=== PATIENT | female | born 1950 | race Caucasian/White ===

== ENCOUNTER → 2016-10-17 | Outpatient (CLI) | payer BC ==
--- NOTE | 2016-10-17 16:40 | BD ---
EXAMINATION TYPE: MG DEXA axial skeleton. DATE OF EXAM: 10/17/2016 11:05 AM COMPARISON: NONE CLINICAL HISTORY: 66-year-old female postmenopausal with HRT Height: 5 FT 3 IN Weight: 173 FRAX RISK QUESTIONS: Alcohol (3 or more units per day): YES Family History (Parent hip fracture): N Glucocorticoids (More than 3mos): N (Ex: prednisone, prednisolone, methylprednisolone, dexamethasone, and hydrocortisone). History of Fracture in Adulthood: N Secondary Osteoporosis: 1. Type 1 Diabetes: NO 2. Hyperthyroidism: NO 3. Menopause before 45: 45 4. Malnutrition: NO 5. 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 Bone mineral density as measured about the Lumbar spine is: ----- L1-L4(G/cm2): 1.445 T Score Values are as follows: ----- L2: 1.0 ----- L3: 2.4 ----- L4: 3.7 ----- L1-L4: 2.2 : BASELINE Bone mineral density about the R hip (g/cm2): 1.049 Bone mineral density about the L hip (g/cm2): 1.016 T Score values are as follows: -----R Neck: 0.1 -----L Neck: -0.2 -----R Intertrochanter: 0.0 -----L Intertrochanter: 0.0 BASELINE IMPRESSION: Normal (Values between +1 and -1 indicate normal bone mass) Rescreen in 5 years NOTE: T-SCORE=SD OF THE YOUNG ADULT MEAN.
--- NOTE | 2016-10-20 09:43 | MM ---
Reason for exam: screening (asymptomatic). Last mammogram was performed 1 year and 2 months ago. History: Patient is postmenopausal. Family history of premenopausal breast cancer in aunt at age 41. Taking estrogen for 13 years 3 months beginning at age 47. Physical Findings: A clinical breast exam by your physician is recommended on an annual basis and results should be correlated with mammographic findings. MG Screening Mammo w CAD Bilateral CC and MLO view(s) were taken. Prior study comparison: August 08, 2015, bilateral MG screening mammo w CAD. June 02, 2014, bilateral MG screening mammo w CAD. March 03, 2013, bilateral digital screening mammo w/CAD. November 19, 2009, bilateral diagnostic digital mammog. There are scattered fibroglandular densities. No significant changes when compared with prior studies. ASSESSMENT: Negative, BI-RAD 1 RECOMMENDATION: Routine screening mammogram of both breasts in 1 year.
== END | disposition home or self-care (01) ==
LOC: RADMAMWWP 10:22
PROVIDERS: ATTEND Family Medicine
DX: Z12.31 Encounter for screening mammogram for malignant neoplasm of breast (principal); Z79.890 Hormone replacement therapy
CPT/HCPCS: 77080; G0202

== ENCOUNTER → 2018-12-29 | Outpatient (CLI) | payer MEDICARE ==
--- NOTE | 2018-12-29 10:47 | NM ---
EXAMINATION TYPE: NM stress cardiolite complete DATE OF EXAM: 12/29/2018 COMPARISON: NONE HISTORY: Ventricular tachycardia TECHNIQUE: After the intravenous administration of 9.97 mCi Tc 99m Sestamibi - Rest images obtained 45 minutes post injection. The patient exercised using a SALVADOR protocol and 1 minute prior to peak exercise was injected with 25.8 mCi Tc 99m Sestamibi - Stress images obtained 10 minutes post injecti on. FINDINGS: Targeted heart rate was achieved during performance of the study. Review of stress and rest SPECT quique ges demonstrates no distinct perfusion abnormality. Gated analysis shows normal wall motion with an estimated left ventricular ejection fraction of 75 %. IMPRESSION: No scintigraphic evidence for reversible ischemia. Consider echocardiographic correlation for elevate d ejection fraction.
--- NOTE | 2018-12-29 10:52 | EST ---
EXERCISE STRESS DATE OF SERVICE: 12/29/2018 AGE: 68 SEX: Female HT: 5'2-3/4" WT: 180 pounds PROTOCOL: Cardiolite Walter STAGE: III DURATION OF EXERCISE: 8 minutes HEART RATE REST: 65 BLOOD PRESSURE REST: 111/75 MAXIMUM HEART RATE ACHIEVED: 143 MAXIMUM BLOOD PRESSURE: 135/89 85% MPHR: 131 100% MPHR: 154 METS: 9.7 INDICATIONS: Ventricular tachycardia. CLINICAL INFORMATION: Baseline rhythm is a sinus mechanism, rate of 65, normal axis and intervals, normal electrocardiogram. Baseline blood pressure 111/75 mmHg. Patient exercised on Walter protocol for 8 minutes reaching peak rate 143 beats per minute which is equal to 92% maximum predicted heart rate. Peak blood pressure 135/89 mmHg. Test was terminated secondary to fatigue. There was no chest pain. Electrocardiograph monitoring revealed occasional PVCs. There was no evidence of diagnostic ischemic ST deviation. Cardiolite was injected at peak exercise. CONCLUSION: 1. Average exercise tolerance with normal electrocardiograph response to exercise. 2. Occasional PVCs. 3. Nuclear images will be reported separately. MMODL / IJN: [id number] /
== END | disposition home or self-care (01) ==
LOC: RADNMMAIN 07:50
PROVIDERS: ATTEND Family Medicine
DX: I47.2 Ventricular tachycardia (principal)
CPT/HCPCS: 93017; 78452; A9500

== ENCOUNTER → 2019-01-26 | Outpatient (CLI) | payer MEDICARE ==
--- NOTE | 2019-01-31 09:58 | MM ---
Reason for exam: screening (asymptomatic). Last mammogram was performed 2 years and 3 months ago. History: Patient is postmenopausal. Family history of premenopausal breast cancer in aunt at age 41. Took estrogen for 13 years 3 months beginning at age 47. Physical Findings: A clinical breast exam by your physician is recommended on an annual basis and results should be correlated with mammographic findings. MG 3D Screening Mammo W/Cad Bilateral CC and MLO view(s) were taken. Prior study comparison: October 17, 2016, bilateral MG screening mammo w CAD. August 08, 2015, bilateral MG screening mammo w CAD. There are scattered fibroglandular densities. There is no discrete abnormality. No significant changes when compared with prior studies. ASSESSMENT: Negative, BI-RAD 1 RECOMMENDATION: Routine screening mammogram of both breasts in 1 year.
== END | disposition home or self-care (01) ==
LOC: RADMAMWWP 14:56
PROVIDERS: ATTEND Family Medicine
DX: Z12.31 Encounter for screening mammogram for malignant neoplasm of breast (principal)
CPT/HCPCS: 77063; 77067

== ENCOUNTER → 2019-03-23 | Outpatient (CLI) | payer MEDICARE ==
[2019-03-23 22:56] LABS: T4, Free (Free Thyroxine) 1.4 ng/dL (0.80-1.80)
== END | disposition home or self-care (01) ==
LOC: LABWHC1 15:06
PROVIDERS: ATTEND Internal Medicine Endocrinology, Diabetes & Metabolism
DX: E04.2 Nontoxic multinodular goiter (principal); E06.3 Autoimmune thyroiditis
CPT/HCPCS: 36415; 84439; 84443; 84481

== ENCOUNTER → 2019-05-05 | Outpatient (CLI) | payer MEDICARE ==
--- NOTE | 2019-05-05 20:01 | CONS ---
CONSULTATION DATE OF SERVICE: 05/05/2019 This patient is a 69-year-old lady who has been evaluated in the sleep center for possible obstructive sleep apnea-hypopnea syndrome. HISTORY OF PRESENT ILLNESS/SLEEP-WAKE EVALUATION: Patient usually sleeps from around 10:30 p.m. until 7:30 a.m. No problems with falling asleep, although she reads in the bedroom. She usually sleeps on the side position with her , who complains about loudness of her snoring. She wakes up from sleep 2 times with nocturia. She has episodes of restless legs, sweating, palpitations and grinding teeth. In the morning she wakes up tired, has difficulty with paying attention and concentration. Delancey Sleepiness Scale is 6. She may take one nap a day. She drinks up to 4 caffeinated beverages during the day. No history of hypnagogic hallucinations, sleep paralysis or cataplexy. PAST MEDICAL HISTORY: Past medical history is positive for: 1. Hypertension. 2. Prediabetes. 3. Episodes of palpitations. 4. Increasing ventricular on echocardiogram, according to patient. 5. Allergies. 6. Questionable history of asthma. 7. Multinodular goiter. PAST SURGICAL HISTORY: 1. Partial hysterectomy. 2. Total left knee replacement in 2012. MEDICATIONS: 1. Metformin. 2. Losartan. 3. Montelukast. 4. Another "spray.". 5. Nalini. 6. Metoprolol. 7. Iodine. 8. Vitamin supplements. SOCIAL HISTORY: Positive for a very short period of smoking when patient was in college. Alcohol consumption about 3 times per week; wine with dinner. FAMILY HISTORY: Hypertension, heart problems, hyperlipidemia, stroke, arthritis, asthma, sinus problems, cancer, headaches, snoring, sleep apnea, emphysema, acid reflux, thyroid problems, restless legs. REVIEW OF SYSTEMS: Awakenings from sleep, episodes of palpitations. PHYSICAL EXAMINATION: GENERAL: A pleasant lady without distress. VITAL SIGNS: BP 122/82, HR 64, RR 16, height 5 feet 2-1/4 inches, weight 180.4 pounds. Body mass index 32.7. Temperature 98.2, oxygen saturation at room air 96%. HEENT: PERRLA, EOMI. Evaluation of oropharynx showed tongue protrudes midline. Extremely low position of soft palate. Mallampati IV. Slight restriction of nasal breathing. NECK: Supple. No JVD. Thyroid is not palpable. Neck measures 14-3/4 inches in circumference. LUNGS: Clear to percussion and to auscultation. Good air exchange. No wheezing or rhonchi. HEART: S1, S2 regular. No murmurs, gallops or rubs. ABDOMEN: Slightly obese. EXTREMITIES: No clubbing or cyanosis. SUMMER ASSOCIATE: Awake, alert, and oriented X3. Cranial nerves 2 to 7 intact. There is no fasciculation or atrophy. noted. No focal deficits observed. IMPRESSION: 1. Snoring, awakenings from sleep with nocturia and palpitations, extremely low position of soft palate, Mallampati IV; possible obstructive sleep apnea-hypopnea syndrome. 2. Hypertension. 3. History of ventricular hypertrophy by results of echocardiogram, according to patient. 4. Prediabetes. 5. Mild obesity. 6. Allergies. 7. Multinodular goiter. 8. Status post total left knee replacement. 9. Status post partial hysterectomy. 10.Questionable history of asthma in the past. PLAN: 1. Polysomnography for evaluation of patient's breathing during sleep. 2. CPAP/BiPAP titration if sleep study confirms obstructive sleep apnea-hypopnea syndrome. 3. Preferable position during sleep on the side. 4. No driving if patient feels any sleepiness. 5. I will see patient for follow up visit to explain results of testing and following plan. Thank you very much for referring this patient for consultation. Sincerely, Juan Jose Christine MD, PhD, FAASM Diplomat of [place] [employer] [place] [employer] Velvet Weaver of [facility] [place] MMODL / STEFANYN: [id number] /
== END | disposition home or self-care (01) ==
LOC: SLEEP 15:20
PROVIDERS: ATTEND Internal Medicine
DX: R06.83 Snoring (principal); I10 Essential (primary) hypertension; E66.9 Obesity, unspecified; E04.2 Nontoxic multinodular goiter; G47.63 Sleep related bruxism; R73.03 Prediabetes; R00.2 Palpitations; G25.81 Restless legs syndrome; R61 Generalized hyperhidrosis; Z68.32 Body mass index [BMI] 32.0-32.9, adult; R35.1 Nocturia; Z87.891 Personal history of nicotine dependence; Z90.710 Acquired absence of both cervix and uterus; Z96.651 Presence of right artificial knee joint; Z79.84 Long term (current) use of oral hypoglycemic drugs; Z79.899 Other long term (current) drug therapy; T78.40XA Allergy, unspecified, initial encounter
CPT/HCPCS: 99211

== ENCOUNTER → 2020-02-17 | Outpatient (CLI) | payer MEDICARE ==
[2020-02-17 15:15] LABS: T4, Free (Free Thyroxine) 1.3 ng/dL (0.80-1.80)
== END | disposition home or self-care (01) ==
LOC: LABWHC1 07:57
PROVIDERS: ATTEND Internal Medicine Endocrinology, Diabetes & Metabolism
DX: E04.2 Nontoxic multinodular goiter (principal); E07.9 Disorder of thyroid, unspecified; R73.02 Impaired glucose tolerance (oral)
CPT/HCPCS: 36415; 84439; 84443; 84481

== ENCOUNTER → 2020-06-19 | Outpatient (CLI) | payer MEDICARE ==
[2020-06-19 10:27] LABS: Basophils # (A) 0.1 k/uL (0-0.2); Basophils % (A) 1 %; Eosinophils # (A) 0.1 k/uL (0-0.7); Eosinophils % (A) 3 %; HCT 37.7 % (34.0-46.0); Lymphocytes # (A) 1.5 k/uL (1.0-4.8); Lymphocytes % (A) 32 %; MCHC 34.4 g/dL (31.0-37.0); Mean Platelet Volume 7.7; Monocytes # (A) 0.3 k/uL (0-1.0); Monocytes % (A) 6 %; Neutrophils # (A) 2.5 k/uL (1.3-7.7); Neutrophils % (A) 55 %; Platelet Count 211 k/uL (150-450); RBC 4.33 m/uL (3.80-5.40); RDW 12.8 % (11.5-15.5); WBC 4.6 k/uL (3.8-10.6)
[2020-06-19 10:39] LABS: INR 0.9 (<1.2); Partial Thromboplastin Time 25.7 sec (22.0-30.0); Prothrombin Time 9.8 sec (9.0-12.0)
[2020-06-19 10:41] LABS: ALT 17 U/L (4-34); AST 24 U/L (14-36); African American GFR (CKD) >90 (>60 ml/min/1.73 sqM); Albumin 4.3 g/dL (3.5-5.0); Alkaline Phosphatase 39 U/L (38-126); Anion Gap 7 mmol/L; Appearance,Urine Clear (Clear); Bacteria,Urine Rare /hpf; Bilirubin,Urine Negative (Negative); Blood Urea Nitrogen 15 mg/dL (7-17); Blood,Urine Small (Negative); Calcium 9.4 mg/dL (8.4-10.2); Carbon Dioxide 27 mmol/L (22-30); Chloride 100 mmol/L (98-107); Color,Urine Yellow; Glucose 118 mg/dL (74-99); Glucose,Urine (UA) Negative (Negative); Hyaline Casts,Urine 1 /lpf (0-2); Ketones,Urine Negative (Negative); Leukocyte Esterase,Urine Negative (Negative); Mucus,Urine Rare /hpf; Nitrite,Urine Negative (Negative); Non-African American GFR(CKD) 85 (>60 ml/min/1.73 sqM); Potassium 4.4 mmol/L (3.5-5.1); Protein,Urine Negative (Negative); RBC,Urine 5 /hpf (0-5); Sodium 134 mmol/L (137-145); Specific Gravity,Urine 1.013 (1.001-1.035); Total Bilirubin 0.7 mg/dL (0.2-1.3); Urobilinogen,Urine <2.0 mg/dL (<2.0); WBC,Urine <1 /hpf (0-5)
== END | disposition home or self-care (01) ==
LOC: LABPAT 09:09
PROVIDERS: ATTEND Orthopaedic Surgery Sports Medicine
DX: Z01.818 Encounter for other preprocedural examination (principal); Z01.812 Encounter for preprocedural laboratory examination
CPT/HCPCS: 80053; 81001; 85025; 85610; 85730; 87070

== ENCOUNTER → 2020-08-15 | Outpatient (CLI) | payer MEDICARE ==
--- NOTE | 2020-08-20 09:42 | MM ---
Reason for exam: screening (asymptomatic). Last mammogram was performed 1 year and 7 months ago. History: Patient is postmenopausal. Family history of premenopausal breast cancer in aunt at age 41. Took estrogen for 13 years 3 months beginning at age 47. Physical Findings: A clinical breast exam by your physician is recommended on an annual basis and results should be correlated with mammographic findings. MG 3D Screening Mammo W/Cad Bilateral CC and MLO view(s) were taken. Prior study comparison: January 26, 2019, bilateral MG 3d screening mammo w/cad. October 17, 2016, bilateral MG screening mammo w CAD. The breast tissue is heterogeneously dense. This may lower the sensitivity of mammography. There are benign appearing round calcifications bilaterally. There is no discrete abnormality. ASSESSMENT: Benign, BI-RAD 2 RECOMMENDATION: Routine screening mammogram of both breasts in 1 year. Manage on a clinical basis with regard to left pain.
== END | disposition home or self-care (01) ==
LOC: RADMAMWWP 14:01
PROVIDERS: ATTEND Family Medicine
DX: Z12.31 Encounter for screening mammogram for malignant neoplasm of breast (principal)
CPT/HCPCS: 77063; 77067

== ENCOUNTER → 2020-08-21 | Outpatient (CLI) | payer MEDICARE ==
[2020-08-21 22:13] LABS: Chol/HDL Ratio 3.26; LDL Cholesterol,Calculated 90.6 mg/dL (0.0-131.0); VLDL Calculation 22.4 mg/dL (5.00-40.00)
[2020-08-21 22:21] LABS: T4, Free (Free Thyroxine) 1.4 ng/dL (0.80-1.80)
[2020-08-21 23:06] LABS: Hemoglobin A1C 5.7 % (4.0-6.0)
== END | disposition home or self-care (01) ==
LOC: LABWHC1 10:17
PROVIDERS: ATTEND Physician Assistant Medical
DX: R73.01 Impaired fasting glucose (principal); E78.5 Hyperlipidemia, unspecified; E03.9 Hypothyroidism, unspecified
CPT/HCPCS: 36415; 80061; 83036; 84439; 84443; 84481

== ENCOUNTER → 2020-08-21 | Outpatient (CLI) | payer MEDICARE ==
[2020-08-21 11:35] LABS: Appearance,Urine Clear (Clear); Bilirubin,Urine Negative (Negative); Blood,Urine Small (Negative); Color,Urine Light Yellow; Glucose,Urine (UA) Negative (Negative); Ketones,Urine Negative (Negative); Leukocyte Esterase,Urine Negative (Negative); Nitrite,Urine Negative (Negative); Protein,Urine Negative (Negative); RBC,Urine 2 /hpf (0-5); Specific Gravity,Urine 1.011 (1.001-1.035); Squamous Epithelial Cell,Urine <1 /hpf (0-4); Urobilinogen,Urine <2.0 mg/dL (<2.0); WBC,Urine <1 /hpf (0-5)
[2020-08-21 11:49] LABS: ALT 16 U/L (4-34); AST 24 U/L (14-36); African American GFR (CKD) >90 (>60 ml/min/1.73 sqM); Albumin 4.6 g/dL (3.5-5.0); Alkaline Phosphatase 46 U/L (38-126); Anion Gap 7 mmol/L; Blood Urea Nitrogen 12 mg/dL (7-17); Calcium 9.7 mg/dL (8.4-10.2); Carbon Dioxide 28 mmol/L (22-30); Chloride 99 mmol/L (98-107); Glucose 104 mg/dL (74-99); Non-African American GFR(CKD) >90 (>60 ml/min/1.73 sqM); Potassium 4.4 mmol/L (3.5-5.1); Sodium 134 mmol/L (137-145); Total Bilirubin 0.6 mg/dL (0.2-1.3); Total Protein 7.3 g/dL (6.3-8.2)
[2020-08-21 11:54] LABS: INR 0.9 (<1.2); Partial Thromboplastin Time 25.4 sec (22.0-30.0)
[2020-08-21 11:56] LABS: HCT 36.7 % (34.0-46.0); HGB 12.5 gm/dL (11.4-16.0); MCHC 34.2 g/dL (31.0-37.0); MCV 87.5 fL (80.0-100.0); Mean Platelet Volume 8.2; Platelet Count 216 k/uL (150-450); RBC 4.19 m/uL (3.80-5.40); RDW 12.9 % (11.5-15.5); WBC 4.8 k/uL (3.8-10.6)
== END | disposition home or self-care (01) ==
LOC: LABPAT 10:22
PROVIDERS: ATTEND Orthopaedic Surgery Sports Medicine
DX: Z01.818 Encounter for other preprocedural examination (principal)
CPT/HCPCS: 80053; 81001; 85027; 85610; 85730

== ENCOUNTER 2020-08-30 05:34 | Day surgery (SDC) | payer MEDICARE ==
[2020-08-27 17:35] VITALS: BMI 31.8
[~2020-08-30 05:34] MED LIST: ACETAMINOPHEN TAB 500 MG TAB PO PRN; GABAPENTIN 300 MG CAP PO PRN; MELOXICAM 7.5 MG TAB PO PRN; ONDANSETRON 4 MG/2 ML VIAL IVP PRN; ROPIVACAINE 246.25 MG, EPINEPHrine 0.5 MG, KETOROLAC 30 MG, cloNIDine HCL/PF 80 MCG, WA... MISCELLANE PRN; TRANEXAMIC ACID 1,000 MG in SODIUM CHLORIDE 0.9% 100 ML IVPB PRN
[2020-08-30] MEDS ORDERED: ONDANSETRON 4 MG/2 ML VIAL IVP ONE (05:37)
[2020-08-30] MEDS ORDERED: MIDAZOLAM 2 MG/2 ML VIAL IV PRN (05:37)
[2020-08-30] MEDS ORDERED: DEXAMETHASONE SOD PHOSPHATE 4 MG/ML 1 ML VIAL IV ONE (05:37)
[2020-08-30] MEDS: LACTATED RINGERS 1,000 ML IV SCH ×3 (06:03→17:53)
[2020-08-30] MEDS ORDERED: LIDOCAINE 1% (10MG/ML) FOR IV START INTRADERMA ONE (06:05)
[2020-08-30 06:14] LABS: Glucose,Whole Blood 116 mg/dL (75-99)
[2020-08-30] MEDS ORDERED: TRANEXAMIC ACID 1,000 MG/10 ML VIAL ONE (06:59)
[2020-08-30] MEDS ORDERED: diphenhydrAMINE 50 MG/ML 1 ML VIAL ONE (06:59)
[2020-08-30] MEDS ORDERED: PHENYLEPHRINE-0.9% NACL SYG 1,000 MCG/10 ML SYRINGE ONE (06:59)
[2020-08-30] MEDS ORDERED: SODIUM CHLORIDE 0.9% 100 ML BAG ONE (06:59)
[2020-08-30] MEDS ORDERED: PROPOFOL 10 MG/ML 20 ML VIAL IV ONE (06:59)
[2020-08-30] MEDS ORDERED: MIDAZOLAM 2 MG/2 ML VIAL ONE (06:59)
[2020-08-30] MEDS ORDERED: fentaNYL (PF) 50 MCG/ML 2 ML AMP ONE (06:59)
[2020-08-30] MEDS ORDERED: ROPIVACAINE/EPI/CLONIDINE/KET 50 ML SYRINGE MISCELLANE PRN (07:00)
[2020-08-30] MEDS ORDERED: LACTATED RINGERS 1,000 ML IV ONE (08:51)
[2020-08-30] MEDS ORDERED: ROPIVACAINE 0.2%-NS ON-Q PUMP 1,090 MG, EMPTY PAIN BALL 1 EACH MISCELLANE PRN (09:01)
--- NOTE | 2020-08-30 09:01 | P.ANPRN ---
Procedure Note - Anesthesia - Nerve Block Performed Right Adductor Canal Infusion Time Out Performed: Yes Date of Procedure: 08/30/20 Procedure Start Time: 06:41 Procedure Stop Time: 06:53 Location of Patient: PreOp Indication: Acute Post-Operative Pain, Requested by Surgeon Sedation Type: Sedate with meaningful contact maintained Preparation: Sterile Prep Position: Supine Catheter: Indwelling Needle Types: Pajunk Needle Gauge: 21 Ultrasound used to visualize needle placement: Yes Ultrasound used to observe medication spread: Yes Blood Aspirated: No Pain Paresthesia on Injection Noted: No Resistance on Injection: Normal Image Stored and Saved: Yes Events: Uneventful and Well Tolerated (ropi .5% 20cc plus dexamethasone 4mg)
[2020-08-30] MEDS ORDERED: HYDROcodone/APAP 5-325MG 1 EACH TAB PO PRN (09:07)
[2020-08-30] MEDS ORDERED: MAGNESIUM HYDROXIDE 2,400 MG/10 ML CUP PO PRN (09:07)
[2020-08-30] MEDS ORDERED: traMADol 50 MG TAB PO PRN (09:07)
[2020-08-30] MEDS ORDERED: NA PHOS,M-B/NA PHOS,DI-BA 133 ML ENEMA RECTAL PRN (09:07)
[2020-08-30] MEDS ORDERED: TEMAZEPAM 15 MG CAP PO PRN (09:07)
[2020-08-30] MEDS ORDERED: ONDANSETRON 4 MG/2 ML VIAL IVP PRN (09:07)
[2020-08-30] MEDS ORDERED: NALOXONE 0.4 MG/ML 1 ML VIAL IV PRN (09:07)
[2020-08-30] MEDS ORDERED: HYDROmorphone 0.2 MG/1 ML SYRINGE IVP PRN (09:07)
[2020-08-30] MEDS ORDERED: bisacodyL 10 MG SUPP RECTAL PRN (09:07)
[2020-08-30] MEDS ORDERED: ACETAMINOPHEN TAB 325 MG TAB PO PRN (09:07)
[2020-08-30] MEDS ORDERED: diazePAM 5 MG TAB PO PRN (09:07)
[2020-08-30] MEDS ORDERED: HYDROmorphone 0.5 MG/0.5 ML SYRINGE IVP PRN (09:07)
[2020-08-30 09:11] LABS: Glucose,Whole Blood 152 mg/dL (75-99)
--- NOTE | 2020-08-30 09:33 | OP ---
OPERATIVE REPORT DATE OF PROCEDURE: 08/30/2020 SURGEON: Raz Lacey MD. CUT OUT MACHINE OPERATOR: GREG Fitzgerald. PREOPERATIVE DIAGNOSIS: Right knee osteoarthrosis. POSTOPERATIVE DIAGNOSIS: Right knee osteoarthrosis. OPERATION: Right total knee arthroplasty. ANESTHESIA: Spinal sedation. ESTIMATED BLOOD LOSS: 100 mL. TOURNIQUET TIME: 49 minutes at 250 mmHg. COMPLICATIONS: None apparent. DRAINS: None. DISPOSITION: Postanesthesia care unit. INDICATIONS: Jeannie is a 70-year-old female with longstanding history of right knee pain. History and physical examination are consistent with advanced right knee osteoarthrosis. She has been through significant nonoperative management up this point. Further treatment options were discussed. She has decided to go forward with the right total knee arthroplasty. The risks of procedure were discussed with her in detail. These risks include, but are not limited to risk of infection, nerve damage, bleeding, pain, and a small risk of deep vein thrombosis which could lead to fatal pulmonary embolism. There is also risk of loosening of the implant which could require revision operation. The patient understands these risks. All of her questions were answered to her satisfaction. Appropriate informed consent was obtained. DESCRIPTION OF THE PROCEDURE: The patient was identified in the preoperative holding area. Surgical site was marked by both the patient and myself. She was given 2 grams of Ancef IV for prophylactic purposes. She was then transferred to the operative suite. She was placed supine on the operating room table. Spinal anesthetic was then administered and dosed per the anesthesia without apparent complication. Examination under anesthesia was then performed. The patient was 2-3 degrees shy of full extension. She had 100 degrees of flexion. The medial collateral ligament, lateral collateral ligament and posterior cruciate ligaments were stable. Tourniquet was then placed high on the right upper thigh well-padded in preparation for surgery. The patient's right lower extremity was then prepped and draped in usual sterile fashion. Standard surgical pause was undertaken to ensure that we were operating the correct site and that appropriate preoperative antibiotics had been given. All staff in the room were in agreement and we proceeded. The outlines of the patella were marked with surgical pen. A planned 12 cm vertical incision was centered over the patella and was marked with surgical pen. The leg was then exsanguinated with an Esmarch dressing. The knee was then flexed and tourniquet was inflated to 250 mmHg. The total tourniquet time for the procedure was 49 minutes. Incision was then made with a 10 blade scalpel. Dissection was carried down sharply overlying fascia. Great care was taken to minimize the skin flaps. The knee was then exposed using a standard medial parapatellar approach. A small cuff of quadriceps tendon was then left for suturing. She was in a bit of varus preoperatively. A standard medial release was then made. Superficial medial collateral ligament was dissected off the bone around to the posterior aspect of the proximal tibia. The medial meniscus was then excised as well. The lateral meniscus was also released anteriorly. The leg was then externally rotated. The patella was everted. The knee was flexed. Retractors were then placed to protect the collateral ligaments. I then proceeded to remove the infrapatellar fat pad. This was excised sharply tangentially with the fibers of the patellar tendon. I then proceeded to remove the peripheral osteophytes. This was done with a rongeur. I then proceeded with the distal femoral resection. She did have near full extension. A planned 9 mm resection was then done. The femoral canal was then entered in the midline of the femur approximately 10 mm anterior to the origin of the posterior cruciate ligament. The faheem was then advanced on the center of the femur and placed intramedullary. Based on the preoperative radiographs, the angle between the anatomic and mechanical axis of the femur was approximately 4 to 5 degrees. The valgus angle of the distal femoral cutting guide was then set at 4 degrees for the right knee. Distal femoral cutting guide was then advanced over the intramedullary faheem. This was seated firmly against the femur. I then as mentioned planned to take 9 mm off the distal femur. The cutting block was then secured onto the femur with pins. The jig was then removed. The distal femoral cut was made through the slot of the block. The pins were then removed. The distal femoral cutting block was removed. The accuracy of the distal femoral cuts was checked with 2 flat bars. I then proceeded with femoral sizing. Posterior referencing sizing guide was held firmly against the resected distal surface of the femur. The posterior condyles were resting on the posterior plane of the guide. The sizing stylus was then placed onto the anterior femur. The size was measured as a size 7. I then assessed for femoral rotation. Plan was for 3 degrees of external rotation. Three degrees of external rotation was placed onto the jig. These holes were then marked. I then confirmed the rotation by 3 separate methods. This was done using the epicondylar axis as well as Whitesides line and posterior referencing. It was deemed that the external rotation was proper. I then went forward and placed in the femoral cutting block. This was placed over the previously placed pin holes. The Rodrick wing was then placed on the anterior slots to ensure that we would not notch the anterior femur with the anterior femoral cut. I then proceeded with the anterior femoral cut. This was flushed with the anterior cortex of the femur. The posterior cuts were then made followed by the anterior chamfer cut, then the posterior chamfer cut. The cutting block was then removed. Throughout the resection, the collateral ligaments were protected with retractors. I then placed a trial size 7 femur. It was slightly wide mediolateral but the narrow fit very nicely and it fit flush with the distal end of the femur. The drill holes were then made. I then proceeded with the tibial cut. I planned for cruciate-retaining knee. The guide was placed and set for varus, valgus and for slope. The height set for approximate 2 mm resection from the medial tibial plateau which was the lower side. I was happy with the alignment and amount of resection. The cutting block was then pinned to the proximal tibia. The alignment faheem was removed. The proximal tibia was resected with reciprocating saw. Again this was done with retractors protecting the collateral ligaments as well as the posterior cruciate ligament. I then proceeded to evaluate the flexion and extension gaps. A 10 mm block was then placed. The flexion and extension gaps were equal. I then proceeded with resection of posterior osteophytes, very minimal posterior osteophytes. This was done using a curved osteotome. This resected the posterior osteophytes and posterior capsule stripping was done off the posterior aspect of the femur at this time. The osteophytes were then removed. I then proceeded with resection of the patella. The thickness of the patella was measured using the caliper. The thickness was 22 mm. The thickness of the anticipated patellar dome was taken into account. Resection was then performed and confirmed to be equal in 4 quadrants using a caliper. Approximately 14 mm of bone remained after resection. A 29 x 8 standard patellar trial was then placed. The holes were drilled and the trial was then placed. I then proceeded with sizing tibial plate. A size D tibial plate fit very nicely. I then placed the trial femur, the tibial tray and patellar button. A 10 mm trial tibial insert was also placed. The components fit very nicely. She had full extension and flexion. The extension and flexion gaps were equal and stable to both varus and valgus stress. The patella tracked appropriately. The tibial tray rotation was then marked with a Bovie. This was externally rotated properly. I then proceeded with tibial preparation. First, we drilled the femoral holes and removed femoral component. The tibial tray was then set for proper external rotation as well as mediolateral placement onto the tibia. It was then pinned into place. Then proceed with punching the keel. I then decided proceed with cementing of all of our components. The knee was thoroughly irrigated with sterile saline solution via pulse lavage. The lateral geniculate artery was identified and cauterized. All blood was removed from the bone of the tibia, femur and patella with pulse lavage. I then proceeded with cementing. Two packs of antibiotic bone cement were prepared on the back table by the surgical appliances salesperson. I then proceed with cementing the tibia first. The cement was impacted in the keel as well as deeply seated into the bone. A second coat of cement was then placed. The tibia was then impacted in place. Excess cement was removed. Excess cement was removed with Britt's and Jokers. I then proceed to cementing the femoral component. The femoral component was also cemented using standard technique. Excess cement was removed. A 10 mm trial insert was then placed into the knee. It was brought into full extension with a constant axial load placed until the cement had hardened. The patellar component was then cemented. This held firmly with a compression device until the cement had dried. When the cement had dried, the knee was taken out of extension. All excess cement was removed from around the prosthesis. I then trialed the knee with a 10 mm insert. Flexion extension gaps were appropriate. The knee was stable. It came in full extension. I decided to go forward with a 10 mm medial congruent cross-linked cruciate- retaining tibial insert. The polyethylene was then placed on the tibial tray and locked into place. The knee was then reduced. The knee was again further irrigated with sterile saline solution with antibiotic added. The tourniquet was then deflated. The total tourniquet time for the procedure was 49 minutes at 250 mmHg. Final components were Jesse Persona size 7 narrow cruciate-retaining femoral component, size D tibial tray, a 10 mm medial congruent cruciate-retaining polyethylene insert and a 29 x 8 patella. I then proceeded with closure. Again, the knee was thoroughly irrigated. The quadriceps tendon and the medial retinaculum were reapproximated with #2 Ethibond suture. The extensor mechanism was then closed with a running #2 Quill suture. Subcutaneous tissues were then closed with 2-0 Vicryl interrupted suture. The skin was closed with a running 3-0 Quill suture. Dermabond was applied to the incision. Sterile compressive dressing was then applied. All sponge and needle counts were deemed correct prior to closure. The patient tolerated procedure without apparent complication. She was transferred to recovery room in stable condition. MMODL / IJN: [id number] /
--- NOTE | 2020-08-30 09:54 | XR ---
EXAMINATION TYPE: XR knee limited RT DATE OF EXAM: 08/30/2020 COMPARISON: NONE TECHNIQUE: Two views submitted HISTORY: Post op FINDINGS: There is a prosthetic knee in near anatomic alignment. There is soft tissue edema and emphysema. IMPRESSION: 1. Postoperative change. Appears in near-anatomic alignment
[2020-08-30] MEDS: HYDROmorphone 0.5 MG/0.5 ML SYRINGE IVP PRN ×2 (10:55→12:32)
[2020-08-30] MEDS: HYDROcodone/APAP 10-325MG 1 EACH TAB PO PRN ×2 (18:10→23:24)
[2020-08-30 21:17] LABS: Glucose,Whole Blood 125 mg/dL (75-99)
[2020-08-30] MEDS: SENNOSIDES-DOCUSATE SODIUM 1 EACH TAB PO SCH (21:42)
[2020-08-30] MEDS: ASPIRIN 81 MG PO SCH (21:43)
[2020-08-31] MEDS: HYDROcodone/APAP 10-325MG 1 EACH TAB PO PRN (05:53)
[2020-08-31 06:48] LABS: Glucose,Whole Blood 123 mg/dL (75-99)
--- NOTE | 2020-08-31 07:20 | P.PN ---
Progress Note - Text 08/31/20 702am 70 year old female s/p tkr by Dr Lacey. Pt has an on q pump for post op pain control, she has a vas of 4 this morning.she is complaining of pain in the back of the knee and some gluteal nerve pain.She plans to ask the service for gabapentin .
[2020-08-31] MEDS: ASPIRIN 81 MG PO SCH ×2 (08:22→20:04)
[2020-08-31] MEDS: HYDROmorphone 0.5 MG/0.5 ML SYRINGE IVP PRN ×4 (09:21→22:51)
[2020-08-31 09:39] LABS: Basophils # (A) 0.03 X 10*3/uL (0.00-0.10); Basophils % (A) 0.3 %; Eosinophils # (A) 0.01 X 10*3/uL (0.04-0.35); Eosinophils % (A) 0.1 %; HCT 29.5 % (37.2-46.3); HGB 9.6 g/dL (12.0-15.0); Lymphocytes # (A) 1.29 X 10*3/uL (0.90-5.00); Lymphocytes % (A) 14.5 %; MCH 29.3 pg (27.0-32.0); MCHC 32.5 g/dL (32.0-37.0); MCV 89.9 fL (80.0-97.0); Mean Platelet Volume 11.1 fL (9.5-12.2); Monocytes # (A) 0.75 X 10*3/uL (0.20-1.00); Monocytes % (A) 8.4 %; Neutrophils # (A) 6.81 X 10*3/uL (1.80-7.70); Neutrophils % (A) 76.4 %; Platelet Count 190 X 10*3/uL (140-440); RBC 3.28 X 10*6/uL (4.10-5.20); RDW 12.7 % (11.5-14.5); WBC 8.92 X 10*3/uL (4.50-10.00)
[2020-08-31] MEDS: metFORMIN 500 MG TAB PO SCH ×2 (10:27→20:03)
[2020-08-31] MEDS: METOPROLOL SUCCINATE (ER) 50 MG TAB.ER.24H PO SCH (10:28)
[2020-08-31] MEDS: ATORVASTATIN 20 MG TAB PO SCH ×2 (10:28→10:51)
[2020-08-31] MEDS: PANTOPRAZOLE 40 MG TABLET PO SCH (10:34)
[2020-08-31 11:40] LABS: Glucose,Whole Blood 142 mg/dL (75-99)
[2020-08-31] MEDS: INSULIN ASPART (NovoLOG) 100 UNIT/ML VIAL SQ SCH ×3 (12:20→20:05)
[2020-08-31] MEDS: MULTIVITAMINS, THERA 1 EACH TAB PO SCH (12:21)
--- NOTE | 2020-08-31 12:46 | P.PN ---
Subjective Progress Note Date: 08/31/20 Principal diagnosis: Right TKA Patient is seen at bedside this morning. She is postop day #1 from right total knee arthroplasty. She has pain at the surgical site as expected but denies any new complaints. She denies numbness, tingling or calf pain. Review of systems is negative for fever, chills, chest pain, shortness of breath or other Objective - Vital Signs Vital signs: Vital Signs Temp 99.5 F 08/31/20 07:24 Pulse 70 08/31/20 08:05 Resp 20 08/31/20 08:05 BP 115/70 08/31/20 07:24 Pulse Ox 95 08/31/20 07:24 Intake & Output 08/30/20 08/31/20 08/31/20 18:59 06:59 18:59 Intake Total 1250 Output Total 100 Balance 1150 Weight 79.5 kg Intake: IV 1250 Output: Estimated Blood Loss 100 Other: Voiding Method Toilet Toilet # Voids 1 1 - Exam Inspection reveals a benign surgical wound. There is no active bleeding or drainage. Neurovascular status is intact throughout the lower extremity with motor and sensation fully intact. Calf is soft and nontender. 2+ dorsalis pedis pulse and less than 2 second cap refill is present. - Constitutional General appearance: Present: no acute distress - Labs CBC & Chem 7: 08/31/20 05:49 Labs: Abnormal Lab Results - Last 24 Hours (Table) 08/30/20 08/31/20 08/31/20 Range/Units 21:16 05:49 06:45 RBC 3.28 L (4.10-5.20) X 10*6/uL Hgb 9.6 L (12.0-15.0) g/dL Hct 29.5 L (37.2-46.3) % Eosinophils # 0.01 L (0.04-0.35) X 10*3/uL POC Glucose (mg/dL) 125 H 123 H (75-99) mg/dL Assessment and Plan (1) Status post total right knee replacement Narrative/Plan: She will continue with routine postop orthopedic protocol including pain management, wound care, PT, DVT prophylaxis and medical management. Expect that she will transfer to home tomorrow Current Visit: Yes Status: Acute Code(s): Z96.651 - PRESENCE OF RIGHT ARTIFICIAL KNEE JOINT SNOMED Code(s): 8952777019673 Time with Patient: Less than 30
[2020-08-31] MEDS: HYDROcodone/APAP 7.5-325MG 1 EACH TAB PO PRN ×2 (13:19→20:04)
[2020-08-31] MEDS: GABAPENTIN 300 MG CAP PO PRN ×2 (13:19→20:04)
[2020-08-31 16:45] LABS: Glucose,Whole Blood 130 mg/dL (75-99)
[2020-08-31] MEDS: LACTATED RINGERS 1,000 ML IV SCH ×5 (18:47→20:46)
[2020-08-31 19:53] LABS: Glucose,Whole Blood 145 mg/dL (75-99)
[2020-08-31] MEDS: SENNOSIDES-DOCUSATE SODIUM 1 EACH TAB PO SCH (20:03)
[2020-08-31] MEDS: MONTELUKAST 10 MG TAB PO SCH (20:03)
[2020-08-31] MEDS: LOSARTAN 25 MG TAB PO SCH (20:04)
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
[2020-09-01] MEDS: HYDROcodone/APAP 7.5-325MG 1 EACH TAB PO PRN ×3 (02:09→16:07)
[2020-09-01] MEDS: HYDROmorphone 0.5 MG/0.5 ML SYRINGE IVP PRN (05:46)
[2020-09-01 07:13] LABS: Glucose,Whole Blood 125 mg/dL (75-99)
[2020-09-01] MEDS: INSULIN ASPART (NovoLOG) 100 UNIT/ML VIAL SQ SCH ×4 (07:19→21:14)
[2020-09-01] MEDS: PANTOPRAZOLE 40 MG TABLET PO SCH (07:56)
[2020-09-01] MEDS: metFORMIN 500 MG TAB PO SCH ×2 (07:56→20:45)
[2020-09-01] MEDS: ASPIRIN 81 MG PO SCH ×2 (07:56→20:45)
[2020-09-01] MEDS: MULTIVITAMINS, THERA 1 EACH TAB PO SCH (07:56)
[2020-09-01] MEDS: METOPROLOL SUCCINATE (ER) 50 MG TAB.ER.24H PO SCH (07:56)
--- NOTE | 2020-09-01 11:07 | P.PN ---
Subjective Progress Note Date: 09/01/20 Principal diagnosis: Right TKA Patient is seen at bedside this morning. She is postop day #2 from right total knee arthroplasty. She has pain at the surgical site as expected but denies any new complaints. She denies numbness, tingling or calf pain. Review of systems is negative for fever, chills, chest pain, shortness of breath or other Objective - Vital Signs Vital signs: Vital Signs Temp 97.9 F 09/01/20 07:39 Pulse 78 09/01/20 07:39 Resp 16 09/01/20 07:39 BP 135/80 09/01/20 07:39 Pulse Ox 92 L 09/01/20 07:39 Intake & Output 08/31/20 09/01/20 09/01/20 18:59 06:59 18:59 Intake Total 350 Balance 350 Intake: Oral 350 Other: Voiding Method Toilet Toilet Toilet # Voids 4 3 - Exam Inspection reveals a benign surgical wound. There is no active bleeding or drainage. Neurovascular status is intact throughout the lower extremity with motor and sensation fully intact. Calf is soft and nontender. 2+ dorsalis pedis pulse and less than 2 second cap refill is present. - Constitutional General appearance: Present: no acute distress - Labs CBC & Chem 7: 08/31/20 05:49 Labs: Abnormal Lab Results - Last 24 Hours (Table) 08/31/20 08/31/20 08/31/20 Range/Units 11:38 16:43 19:52 POC Glucose (mg/dL) 142 H 130 H 145 H (75-99) mg/dL 09/01/20 Range/Units 07:11 POC Glucose (mg/dL) 125 H (75-99) mg/dL Assessment and Plan (1) Status post total right knee replacement Narrative/Plan: She will continue with routine postop orthopedic protocol including pain management, wound care, PT, DVT prophylaxis and medical management. Expect that she will transfer to home later today or tomorrow Current Visit: Yes Status: Acute Code(s): Z96.651 - PRESENCE OF RIGHT ARTIFICIAL KNEE JOINT SNOMED Code(s): 4838355099236 Time with Patient: Less than 30
[2020-09-01 11:10] LABS: Glucose,Whole Blood 190 mg/dL (75-99)
[2020-09-01] MEDS: GABAPENTIN 300 MG CAP PO PRN ×2 (11:17→20:51)
--- NOTE | 2020-09-01 13:15 | P.PN ---
Subjective Patient does have history of 4 type 2 diabetes mellitus and hypertension postoperative day 2 right totally arthroplasty presently clinically doing well but still complaining of significant pain in the right knee because of which are patient is not being discharged. Constitutional: Denied any fatigue denied any fever. Cardio vascular: denied any chest pain, palpitations Gastrointestinal denied any nausea vomiting Pulmonary: Denied any shortness of breath cough Neurologic denied any new focal deficits All inpatient medications were reviewed and appropriate changes in these medications as dictated in the interval history and assessment and plan. Objective - Vital Signs Vital signs: Vital Signs Temp 97.9 F 09/01/20 07:39 Pulse 78 09/01/20 07:39 Resp 16 09/01/20 07:39 BP 135/80 09/01/20 07:39 Pulse Ox 92 L 09/01/20 07:39 Intake & Output 08/31/20 09/01/20 09/01/20 18:59 06:59 18:59 Intake Total 350 Balance 350 Intake: Oral 350 Other: Voiding Method Toilet Toilet Toilet # Voids 4 3 - Exam PHYSICAL EXAMINATION: GENERAL: The patient is alert and oriented x3, not in any acute distress. Well developed, well nourished. HEENT: Pupils are round and equally reacting to light. EOMI. No scleral icterus. No conjunctival pallor. Normocephalic, atraumatic. No pharyngeal erythema. No thyromegaly. CARDIOVASCULAR: S1 and S2 present. No murmurs, rubs, or gallops. PULMONARY: Chest is clear to auscultation, no wheezing or crackles. ABDOMEN: Soft, nontender, nondistended, normoactive bowel sounds. No palpable organomegaly. MUSCULOSKELETAL: Deferred to orthopedic surgery EXTREMITIES: No cyanosis, clubbing, or pedal edema. NEUROLOGICAL: Gross neurological examination did not reveal any focal deficits. SKIN: No rashes. - Labs CBC & Chem 7: 08/31/20 05:49 Labs: Abnormal Lab Results - Last 24 Hours (Table) 08/31/20 08/31/20 09/01/20 Range/Units 16:43 19:52 07:11 POC Glucose (mg/dL) 130 H 145 H 125 H (75-99) mg/dL 09/01/20 Range/Units 11:09 POC Glucose (mg/dL) 190 H (75-99) mg/dL Assessment and Plan Plan: -Type 2 diabetes mellitus on metformin blood sugars are fairly well controlled -Hypertension was resumed on losartan blood pressures are within normal limits -Hyperlipidemia continue with Lipitor Right knee osteoarthritis status post right knee arthroplasty, patient is an 81 mg twice a day of aspirin
[2020-09-01 15:33] LABS: Hemoglobin A1C 5.8 % (4.0-6.0)
[2020-09-01 16:43] LABS: Glucose,Whole Blood 131 mg/dL (75-99)
[2020-09-01] MEDS: LACTATED RINGERS 1,000 ML IV SCH ×2 (17:35→21:15)
[2020-09-01] MEDS: SENNOSIDES-DOCUSATE SODIUM 1 EACH TAB PO SCH (20:44)
[2020-09-01] MEDS: LOSARTAN 25 MG TAB PO SCH (20:45)
[2020-09-01] MEDS: MONTELUKAST 10 MG TAB PO SCH (20:45)
[2020-09-01 20:56] LABS: Glucose,Whole Blood 141 mg/dL (75-99)
[2020-09-02] MEDS: HYDROcodone/APAP 7.5-325MG 1 EACH TAB PO PRN ×2 (03:24→08:02)
[2020-09-02 04:08] VITALS: RESP 18
[2020-09-02] MEDS: LACTATED RINGERS 1,000 ML IV SCH ×2 (06:23→07:47)
[2020-09-02 07:09] LABS: Glucose,Whole Blood 133 mg/dL (75-99)
[2020-09-02] MEDS: INSULIN ASPART (NovoLOG) 100 UNIT/ML VIAL SQ SCH (07:47)
[2020-09-02 08:02] VITALS: BP 123/80; PULSE 91; TEMP 98
[2020-09-02] MEDS: ASPIRIN 81 MG PO SCH (08:03)
[2020-09-02] MEDS: PANTOPRAZOLE 40 MG TABLET PO SCH (08:03)
[2020-09-02] MEDS: metFORMIN 500 MG TAB PO SCH (08:03)
[2020-09-02] MEDS: METOPROLOL SUCCINATE (ER) 50 MG TAB.ER.24H PO SCH (08:03)
[2020-09-02] MEDS: ATORVASTATIN 20 MG TAB PO SCH (08:03)
[2020-09-02] MEDS: MULTIVITAMINS, THERA 1 EACH TAB PO SCH (08:04)
[2020-09-02 09:10] LABS: Basophils # (A) 0.05 X 10*3/uL (0.00-0.10); Basophils % (A) 0.6 %; Eosinophils # (A) 0.12 X 10*3/uL (0.04-0.35); Eosinophils % (A) 1.4 %; HCT 33.7 % (37.2-46.3); HGB 11.3 g/dL (12.0-15.0); Lymphocytes # (A) 1.46 X 10*3/uL (0.90-5.00); Lymphocytes % (A) 16.8 %; MCH 29.2 pg (27.0-32.0); MCHC 33.5 g/dL (32.0-37.0); MCV 87.1 fL (80.0-97.0); Mean Platelet Volume 11.2 fL (9.5-12.2); Monocytes # (A) 0.65 X 10*3/uL (0.20-1.00); Monocytes % (A) 7.5 %; Neutrophils # (A) 6.34 X 10*3/uL (1.80-7.70); Neutrophils % (A) 73.1 %; Platelet Count 255 X 10*3/uL (140-440); RBC 3.87 X 10*6/uL (4.10-5.20); RDW 12.8 % (11.5-14.5); WBC 8.67 X 10*3/uL (4.50-10.00)
--- NOTE | 2020-09-02 09:25 | P.PN ---
Subjective Patient does have history of 4 type 2 diabetes mellitus and hypertension postoperative day 2 right totally arthroplasty presently clinically doing well but still complaining of significant pain in the right knee because of which are patient is not being discharged. 09/02/2020 patient's pain in the right knee is significantly better today wanted to go home. Constitutional: Denied any fatigue denied any fever. Cardio vascular: denied any chest pain, palpitations Gastrointestinal denied any nausea vomiting Pulmonary: Denied any shortness of breath cough Neurologic denied any new focal deficits All inpatient medications were reviewed and appropriate changes in these medications as dictated in the interval history and assessment and plan. Objective - Vital Signs Vital signs: Vital Signs Temp 98.0 F 09/02/20 08:00 Pulse 91 09/02/20 08:00 Resp 18 09/02/20 08:00 BP 123/80 09/02/20 08:00 Pulse Ox 93 L 09/02/20 08:00 Intake & Output 09/01/20 09/02/20 09/02/20 18:59 06:59 18:59 Intake Total 540 Balance 540 Intake: Oral 540 Other: Voiding Method Toilet Toilet # Voids 2 2 - Exam PHYSICAL EXAMINATION: GENERAL: The patient is alert and oriented x3, not in any acute distress. Well developed, well nourished. HEENT: Pupils are round and equally reacting to light. EOMI. No scleral icterus. No conjunctival pallor. Normocephalic, atraumatic. No pharyngeal erythema. No thyromegaly. CARDIOVASCULAR: S1 and S2 present. No murmurs, rubs, or gallops. PULMONARY: Chest is clear to auscultation, no wheezing or crackles. ABDOMEN: Soft, nontender, nondistended, normoactive bowel sounds. No palpable organomegaly. MUSCULOSKELETAL: Deferred to orthopedic surgery EXTREMITIES: No cyanosis, clubbing, or pedal edema. NEUROLOGICAL: Gross neurological examination did not reveal any focal deficits. SKIN: No rashes. - Labs CBC & Chem 7: 09/02/20 06:17 Labs: Abnormal Lab Results - Last 24 Hours (Table) 09/01/20 09/01/20 09/01/20 Range/Units 11:09 16:41 20:54 RBC (4.10-5.20) X 10*6/uL Hgb (12.0-15.0) g/dL Hct (37.2-46.3) % Immature Gran # (0.00-0.04) X 10*3/uL POC Glucose (mg/dL) 190 H 131 H 141 H (75-99) mg/dL 09/02/20 09/02/20 Range/Units 06:17 07:08 RBC 3.87 L (4.10-5.20) X 10*6/uL Hgb 11.3 L (12.0-15.0) g/dL Hct 33.7 L (37.2-46.3) % Immature Gran # 0.05 H (0.00-0.04) X 10*3/uL POC Glucose (mg/dL) 133 H (75-99) mg/dL Assessment and Plan Plan: -Type 2 diabetes mellitus on metformin blood sugars are fairly well controlled -Hypertension was resumed on losartan blood pressures are within normal limits -Hyperlipidemia continue with Lipitor Right knee osteoarthritis status post right knee arthroplasty, patient is an 81 mg twice a day of aspirin Patient can be discharged from medical perspective
--- NOTE | 2020-09-02 10:50 | P.DS ---
Providers Expected date of discharge: 09/02/20 Attending physician: Raz Lacey Consults: 08/30/20 09:07 Consult Physician Routine Consulting Provider: Johnny Mirza Consult Reason/Comments: post op medical management Do you want consulting provider notified?: Yes Primary care physician: Lexie Govea - Discharge Diagnosis(es) (1) Status post total right knee replacement Patient was admitted to the OR on 08/30/20 to undergo a right total knee arthroplasty. She had failed conservative measures as an outpatient and desired to proceed with elective surgery after given informed consent. She underwent the above procedure which she tolerated well without complication. Postoperative hospital course has remained without complication. On day of discharge she is afebrile, vital signs stable, labs within acceptable ranges, tolerating by mouth meds and diet, voiding without difficulty, positive flatus, denies abdominal pain or calf pain, pain is controlled on oral pain medication and has no new complaints. Wound is benign, neurovascular status is intact, calf is soft and nontender, abdomen soft and nontender. Review of systems is negative for numbness, tingling, fever, chills, chest pain, shortness of breath, nausea, vomiting, dizziness, headaches, slurred speech or other. Status: Acute Priority: Medium Procedures: Right TKA Patient Condition at Discharge: Good Plan - Discharge Summary Discharge Rx Participant: No New Discharge Prescriptions: New Aspirin [Adult Low Dose Aspirin EC] 81 mg PO BID #60 tablet. Docusate [Colace] 100 mg PO BID #60 capsule HYDROcodone/APAP 7.5-325MG [[place] 7.5-325] 1 - 2 each PO Q6HR PRN #42 tab PRN Reason: Pain No Action Montelukast [Singulair] 10 mg PO HS Ubidecarenone [Co Q-10] 200 mg PO DAILY metFORMIN HCL [Glucophage] 500 mg PO BID Diclofenac Sodium Gel [Voltaren Gel] 4 gm TOPICAL QID PRN PRN Reason: Pain L.acidoph,Paracasei, B.lactis [Probiotic] 1 each PO DAILY Omeprazole Magnesium [PriLOSEC OTC] 20 mg PO DAILY Vitamin A, D, K 1 tab PO DAILY [place]-3 (Unknown Dose) 1 tab PO DAILY Magnesium (Unknown Dose) 1 tab PO DAILY Losartan Potassium [Cozaar] 75 mg PO HS Metoprolol Succinate (ER) [Toprol Xl] 50 mg PO DAILY Rosuvastatin Calcium [Crestor] 10 mg PO Q48H Discharge Medication List Montelukast [Singulair] 10 mg PO HS 12/18/15 [History] Ubidecarenone [Co Q-10] 200 mg PO DAILY 12/18/15 [History] metFORMIN HCL [Glucophage] 500 mg PO BID 12/18/15 [History] Diclofenac Sodium Gel [Voltaren Gel] 4 gm TOPICAL QID PRN 08/27/20 [History] L.acidoph,Paracasei, B.lactis [Probiotic] 1 each PO DAILY 08/27/20 [History] Magnesium (Unknown Dose) 1 tab PO DAILY 08/27/20 [History] [place]-3 (Unknown Dose) 1 tab PO DAILY 08/27/20 [History] Omeprazole Magnesium [PriLOSEC OTC] 20 mg PO DAILY 08/27/20 [History] Vitamin A, D, K 1 tab PO DAILY 08/27/20 [History] Losartan Potassium [Cozaar] 75 mg PO HS 08/28/20 [History] Metoprolol Succinate (ER) [Toprol Xl] 50 mg PO DAILY 08/28/20 [History] Rosuvastatin Calcium [Crestor] 10 mg PO Q48H 08/28/20 [History] Aspirin [Adult Low Dose Aspirin EC] 81 mg PO BID #60 tablet. 08/31/20 [Rx] Docusate [Colace] 100 mg PO BID #60 capsule 08/31/20 [Rx] HYDROcodone/APAP 7.5-325MG [[place] 7.5-325] 1 - 2 each PO Q6HR PRN #42 tab 08/31/20 [Rx] Follow up Appointment(s)/Referral(s): [facility] [NON-STAFF] - (*Call if you are interested in any equipment not covered by your insurance such as a shower chair or toilet riser. ) [facility] [NON-STAFF] - (Please call [facility] if you have questions regarding your new walker. ) [facility], [NON-STAFF] - ([facility] will contact you to set up your first visit. ) Lexie Govea DO [Primary Care Provider] - 09/03/20 10:45 am Raz Lacey MD [STAFF PHYSICIAN] - 09/10/20 1:[address] [NON-STAFF] - (*Call if you are interested in any equipment not covered by your insurance such as a shower chair or toilet riser. ) Patient Instructions/Handouts: Precautions after Total Joint Replacement Surgery (DC), Joint Replacement Surgery (DC), Knee Replacement (DC) Activity/Diet/Wound Care/Special Instructions: Keep wound clean and dry Take meds as directed Follow-up with Dr. Lacey in office Weight bear as tolerated May shower in 3 days if no bleeding Discharge Disposition: HOME WITH HOME HEALTH SERVICES
== END 2020-09-02 11:24 | disposition home health service (06) ==
LOC: OR 05:34 → 4SSUR 08:50 → OR 09-02 11:24
PROVIDERS: ATTEND Orthopaedic Surgery Sports Medicine
DX: M17.11 Unilateral primary osteoarthritis, right knee (principal); M21.161 Varus deformity, not elsewhere classified, right knee; I10 Essential (primary) hypertension; E78.5 Hyperlipidemia, unspecified; E11.9 Type 2 diabetes mellitus without complications; K30 Functional dyspepsia; R63.5 Abnormal weight gain; R51.9 Headache, unspecified; C86.6 Primary cutaneous CD30-positive T-cell proliferations; Z96.652 Presence of left artificial knee joint; Z90.710 Acquired absence of both cervix and uterus; Z90.89 Acquired absence of other organs; Z87.891 Personal history of nicotine dependence; E04.2 Nontoxic multinodular goiter; I42.9 Cardiomyopathy, unspecified; J45.909 Unspecified asthma, uncomplicated; K21.9 Gastro-esophageal reflux disease without esophagitis; Z87.01 Personal history of pneumonia (recurrent); G47.30 Sleep apnea, unspecified; Z99.89 Dependence on other enabling machines and devices; Z98.51 Tubal ligation status; Z82.49 Family history of ischemic heart disease and other diseases of the circulatory system; Z82.0 Family history of epilepsy and other diseases of the nervous system; Z80.1 Family history of malignant neoplasm of trachea, bronchus and lung; Z80.7 Family history of other malignant neoplasms of lymphoid, hematopoietic and related tissues; Z79.84 Long term (current) use of oral hypoglycemic drugs; Z79.1 Long term (current) use of non-steroidal anti-inflammatories (NSAID); Z79.899 Other long term (current) drug therapy; Z79.891 Long term (current) use of opiate analgesic; Z88.8 Allergy status to other drugs, medicaments and biological substances
CPT/HCPCS: 27447; 97116 ×2; 97110; 97161; 64448; 76942; 85025 ×2; 88300; 83036; 73560; C1776; C1713; J2250; J0171; J1200; J1100; J0690 ×2; J2405; J3010; J1885; J2795 ×2; J2370; J2704; J0735; J1170 ×3

== ENCOUNTER → 2021-02-21 | Outpatient (CLI) | payer MEDICARE ==
[2021-02-21 20:34] LABS: T4, Free (Free Thyroxine) 1.2 ng/dL (0.80-1.80)
== END | disposition home or self-care (01) ==
LOC: LABWHC1 08:35
PROVIDERS: ATTEND Internal Medicine Endocrinology, Diabetes & Metabolism
DX: E04.2 Nontoxic multinodular goiter (principal); E07.9 Disorder of thyroid, unspecified; R73.02 Impaired glucose tolerance (oral)
CPT/HCPCS: 36415; 84439; 84443; 84481

== ENCOUNTER → 2021-02-26 | Outpatient (CLI) | payer MEDICARE ==
--- NOTE | 2021-02-26 13:49 | MR ---
EXAMINATION TYPE: MR pelvis wo con DATE OF EXAM: 02/26/2021 COMPARISON: CT abdomen January 04, 2019 HISTORY: Sciatica, BLE radiculopathy, worse on the right. Standard multiplanar, multisequence MRI departmental protocol Multiplanar, multisequence images of the pelvis were acquired. FINDINGS: Sacroiliac joints appear symmetric and thought within normal limits. Hip joints are maintai jono bilaterally. No suspicious osseous edema. Pubic symphysis is intact. No suspicious small or large bowel dilatation. Uterus surgically absent. No concerning pelvic ascites . Bladder poorly distended otherwise unremarkable no groin hernia or adenopathy seen. Muscle bulk is maintained. IMPRESSION: No significant abnormality identified.
--- NOTE | 2021-02-26 14:00 | MR ---
EXAMINATION TYPE: MR lumbar spine wo con DATE OF EXAM: 02/26/2021 COMPARISON: CT abdomen January 04, 2019. HISTORY: Sciatica, BLE radiculopathy, worse on the right. TECHNIQUE: Multiplanar, multisequence imaging of the lumbar spine is performed without IV contrast. FINDINGS: Sagittal images of the lumbar spine show vertebral body heights to appear satisfactory. Sli ght grade 1 retrolisthesis L4 on L5 lung posterior vertebral body margins and L1 on L2 and L2 on L3. Multilevel disc desiccation. Moderate to advanced disc space narrowing L4-L5 level heterogeneous Marcelo c type II endplate changes . Mild to moderate multilevel disc space narrowing. Mild to moderate multi level anterior spurring. The conus medullaris is normal in position and signal ending at inferior T12 level. Axial images at T12-L1 level shows mild facet arthropathy bilaterally and mild broad disc bulge minim ally effacing anterior thecal sac. Axial images at L1-L2 level shows spondylosis with mild/moderate broad-based posterior disc protrusio n effacing the anterior thecal sac, patent bilateral neural foramina. Axial images at L2-L3 level show spondylolisthesis and mild to moderate facet arthropathy bilaterally effacing posterolateral thecal sac. There is mild broad disc bulge effacing the anterior thecal sac. Patent bilateral neural foramina. Axial images at L3-L4 level show moderate facet arthropathy bilaterally effacing left posterolateral thecal sac. There is mild broad disc bulge effacing the anterior thecal sac. There is mild to moderat e left greater than right neural foraminal narrowing. Axial images at L4-L5 level show moderate facet arthropathy bilaterally. There is some effacement of the posterior lateral thecal sac greater on the left. There is posterior spur disc complex effacing t he anterior thecal sac. There is mild to moderate right greater than left bilateral neural foraminal narrowing. Axial images at L5-S1 level show moderate facet arthropathy. There is focal right paracentral disc pr otrusion. Spinal canal is preserved. There is mild to moderate right-sided neural foraminal narrowing . There is a small benign-appearing thin-walled cyst centrally right kidney axial image 25 near 1.0 cm. IMPRESSION: Multilevel spondylolisthesis and degenerative changes in the lumbar spine as detailed abo ve
== END | disposition home or self-care (01) ==
LOC: RADMRIMAIN 12:09
PROVIDERS: ATTEND Family Medicine
DX: M54.5 Low back pain (principal); M47.26 Other spondylosis with radiculopathy, lumbar region; M99.73 Connective tissue and disc stenosis of intervertebral foramina of lumbar region
CPT/HCPCS: 72148; 72195

== ENCOUNTER → 2021-04-24 | Outpatient (CLI) | payer MEDICARE ==
[2021-04-24 10:00] VITALS: BP 133/69; PULSE 74; RESP 18; TEMP 98.4
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
== END ==
LOC: PNWHC3 09:48
PROVIDERS: ATTEND Specialist
DX: M47.816 Spondylosis without myelopathy or radiculopathy, lumbar region (principal); M51.36 Other intervertebral disc degeneration, lumbar region; I10 Essential (primary) hypertension; K21.9 Gastro-esophageal reflux disease without esophagitis; Z87.891 Personal history of nicotine dependence; Z79.899 Other long term (current) drug therapy
CPT/HCPCS: 99211

== ENCOUNTER → 2021-12-19 | Outpatient (CLI) | payer MEDICARE ==
--- NOTE | 2021-12-19 10:25 | P.PAINPG ---
PQRS Measure Charge Sheet Comment: A 71 yr old female with a history of severe and chronic low back pain secondary to lumbar degenerative disc diseases and lumbar spondylosis with facet arthropathy presents today for evaluation of LBP. Pain level is 1/10 in intensity, aching, cramping sensation in the lower aspects of the lumbar spine with shooting pain down the lower extremities bilaterally. Pain is provoked by twisting, bending and lifting. Pain is alleviated with medications, topicals, injections in the past, ice, physical therapy in the past, chiropractic treatments last November 2021, daily home stretching regimen, use of a TENS belts, repositioning and rest. She has not used her TENS belts in a few years as it is malfunctioning and she will follow up with her prior physician to have it re- issued. Interventional pain procedures completed include LESI by Dr. Grey September 2021 Patient is currently on Celebrex by her PCP, Jack alberts OTC. Patient denies any side effects of the medication(s), denies excessive drowsiness or sleepiness, denies suicidal ideation and reports that the current pain medication is helping to control the pain and improve activities of daily living. Patient denies any motor or sensory deficits. Patient denies any fever or night sweats, denies any change in the bowel movements or urination. Physical Examination: -Constitutional: Cooperative. Not in acute distress . -HEENT: Neck is supple. No lymphadenopathy. No thyromegaly. Normal thyroid size. Eyes: No ptosis , no icterus, no photophobia. ENT: No auditory deficits. Normal oropharynx. No Thrush. - Respiratory: Chest clear to auscultations bilaterally. No wheezing. No rhonchi. - Cardiovascular: Regular rate and rhythm. S1 / S2 , no S3 , no S4. - Gastrointestinal: Abdomen soft no tenderness. Bowel sounds positive in all four quadrants. No organomegaly. - Genitourinary: Deferred. - Neurologic: Cranial nerve II to XII intact. No focal neurological deficits. - Psychatric: Alert & oriented x 3. Matching mood & appropriate affect. Judgment and insight intact. - Lymphatic: No Lymphadenopathy. - Musculoskeletal: Cervical spine: Muscle bulk/ tone/ strength in the bilateral upper extremities normal Vertebral body tenderness to palpation over Facet loading test positive Thoracic spine Muscle bulk / tone/ strength in the bilateral paraspinal muscles normal Vertebral body tender to palpation over Facet loading test positive Lumbar spine: Motor bulk/ tone/ strength lower extremities , thigh and legs : 5/5 Deep tendon reflexes : Normal Knee Jerk. Normal Ankle Jerk . Vertebral body tenderness to palpation over BL L4-L5, L5-S1 with paraspinal TTP Lumbar Facet Loading Test positive Straight Leg Raise: positive at 30 degrees right side/ left side Gaenslen's Test positive Sacral spine : Severe tenderness over the Sacroiliac joint: right side / left side Range of motion: Flexion of the lumbar spine <60 degrees Range of motion: Extension of the lumbar spine <20 degrees Gaenslen's Test positive Raji's Test positive Sary test: positive right side / left side Thigh Thrust Test Sacral Thrust Test Assessment and plan: Chronic low back pain secondary to lumbar degenerative disc disease , lumbar spondylosis with facet arthropathy without myelopathy Recommendation of BL facet blocks of the medial branches L4-L5, L5-S1 #1. May need a series of injections, up until RFA, for optimal pain relief. Risks, benefits of procedure discussed and pt verbalized understanding. Denies anticoagulant use or medical history of diabetes. All patient questions answered MAPS reviewed and it was appropriate. I have spent 31 minutes on patient care today. Dr Campuzano was available by phone for the evaluation of this patient. The time was used to review the medical records including relevant urine studies and Prescription history (MAPs), review of the available imaging, evaluation and examination of the patient, coordination of care with the medical staff and if applicable referring physicians, as well as creation of the medical record PQRS Narrative: Smoking Status Former smoker Hx Alcohol Use (MH) Yes Home Medications: Ambulatory Orders Ubidecarenone [Co Q-10] 100 mg PO DAILY 12/18/15 metFORMIN HCL [Glucophage] 500 mg PO BID 12/18/15 Magnesium (Unknown Dose) 1 tab PO Q2D 08/27/20 Omeprazole Magnesium [PriLOSEC OTC] 20 mg PO DAILY 08/27/20 Vitamin A, D, K 1 tab PO DAILY 08/27/20 Losartan Potassium [Cozaar] 75 mg PO HS 08/28/20 Metoprolol Succinate (ER) [Toprol Xl] 50 mg PO DAILY 08/28/20 Rosuvastatin Calcium [Crestor] 5 mg PO HS 08/28/20 Cyanocobalamin (Vitamin B-12) [Vitamin B12] 1,000 mcg PO DAILY 06/20/21 Ibuprofen [Motrin] 400 mg PO Q6HR PRN 06/20/21 Controlled Substance Measures - Controlled Substance Measures Is patient prescribed a controlled substance at discharge?: No
[2021-12-19 11:36] VITALS: BP 158/77; PULSE 73; RESP 18; TEMP 98.2
== END ==
LOC: PNWHC3 09:48
PROVIDERS: ATTEND Specialist
DX: M47.816 Spondylosis without myelopathy or radiculopathy, lumbar region (principal); M51.36 Other intervertebral disc degeneration, lumbar region; G89.29 Other chronic pain; Z91.048 Other nonmedicinal substance allergy status; Z88.8 Allergy status to other drugs, medicaments and biological substances; Z87.891 Personal history of nicotine dependence
CPT/HCPCS: 99211

== ENCOUNTER 2022-01-28 06:32 | Day surgery (SDC) | payer MEDICARE ==
[~2022-01-28 06:32] MED LIST changes: -ACETAMINOPHEN TAB 500 MG TAB PO PRN; -GABAPENTIN 300 MG CAP PO PRN; +LACTATED RINGERS 1,000 ML IV SCH; +LIDOCAINE 1% (10MG/ML) FOR IV START INTRADERMA PRN; -MELOXICAM 7.5 MG TAB PO PRN; -ONDANSETRON 4 MG/2 ML VIAL IVP PRN; -ROPIVACAINE 246.25 MG, EPINEPHrine 0.5 MG, KETOROLAC 30 MG, cloNIDine HCL/PF 80 MCG, WA... MISCELLANE PRN; -TRANEXAMIC ACID 1,000 MG in SODIUM CHLORIDE 0.9% 100 ML IVPB PRN
[2022-01-28 07:04] VITALS: TEMP 97.6
[2022-01-28 07:15] LABS: Glucose,Whole Blood 117 mg/dL (70-110)
[2022-01-28] MEDS ORDERED: methylPREDNISolone ACETATE 40 MG/ML 1 ML VIAL ONE (07:17)
[2022-01-28] MEDS ORDERED: MIDAZOLAM 2 MG/2 ML VIAL ONE (07:17)
[2022-01-28] MEDS ORDERED: fentaNYL (PF) 50 MCG/ML 2 ML AMP ONE (07:17)
[2022-01-28] MEDS ORDERED: ROPIVACAINE 5 MG/ML 20 ML AMPULE ONE (07:17)
--- NOTE | 2022-01-28 07:34 | P.PCN ---
Date of Procedure: 01/28/22 Procedure(s) Performed: PREOPERATIVE DIAGNOSIS : 1- Lumbar spondylosis with Facet Arthropathy without myelopathy . 2- Lumber degenerative disc disease POSTOPERATIVE DIAGNOSIS: 1- Lumbar spondylosis with Facet Arthropathy without myelopathy . 2- Lumber degenerative disc disease PROCEDURE: Diagnostic bilateral L3 , L4 , and L5 medial branch block under fluoroscopy guidance (fluoroscopy images available in the radiology Department ) ( To target the facet joint between bilateral L4-5 , and L5-S1 )# 1st ANESTHESIA:, moderate sedation with intravenous Versed 2 mg and Fentanyl 50 mcg. EBL: Minimal COMPLICATION: None PROCEDURE INDICATION: Chronic low back pain secondary to Facet arthropathy unresponsive to conservative treatment. PROCEDURE DESCRIPTION: the patient was seen and identified in the preop holding area , risks and benefits and possible complications of the procedure and alternative were discussed with the patient, and the patient agreed to proceed with the procedure and signed the consent and vital signs monitored during the procedure and fluoroscopy was used to maximize the benefit and accuracy of the needle placement, and sedation was given to decrease patient anxiety, patient was taken to the procedure room and placed in prone position vital signs monitored in the back prepped with chlorhexidine X3 then under strict sterile technique using a right oblique fluoroscopy ,the junction of the transverse process and the superior articulating process of the right L3 , L4 , and L5 vertebra which corresponding to the fluoroscopy image of the eye of the Gus dog on the block side for the medial branches and subsequently , after local infiltration of skin and subcu tissuies with Ropivacaine 0.5 % , one mL at each level ,then 22-gauge Quincke-type needles , 3 needle was used , each one of them placed at the junction of the base of the transverse process and the superior articular process at the appropriate level, and the needle was advanced until the periosteum contacted, needle placement confirmed with AP oblique and lateral view and after appropriate needle placement confirmed, and after negative aspiration for heme and CSF and there was no paresthesia 1-1/2 mL of Ropivacaine 0.5% mixed with 20 mg Depo-Medrol , then half mL injected at each level after negative aspiration the needle subsequently removed and the same procedure repeated for the left side at left side at L3 , L4 and L5 levels. At the end of the procedure and the needles removed and a bandage applied after the skin was cleaned the cleaning solution patient taken to recovery room in stable condition and monitors in the recovery room for 20-30 minutes and discharged home in stable condition after discharge criteria met and patient will follow up with the pain clinic in 2-4 weeks
[2022-01-28] MEDS ORDERED: IV FLUID CONTINUATION 1,000 ML IV ONE (07:35)
[2022-01-28 08:00] VITALS: BP 121/79; PULSE 62; RESP 18
--- NOTE | 2022-01-28 08:27 | FL ---
Fluoroscopy HISTORY: Pain 10 seconds fluoroscopy time supplied to the referring clinician. 4 intraoperative C-arm images docum ent the procedure. See dictated report from anesthesia.
== END 2022-01-28 08:05 | disposition home or self-care (01) ==
LOC: ORPAIN 06:32
PROVIDERS: ATTEND Specialist
DX: M47.816 Spondylosis without myelopathy or radiculopathy, lumbar region (principal); M51.36 Other intervertebral disc degeneration, lumbar region; G89.29 Other chronic pain; F41.9 Anxiety disorder, unspecified; Z79.84 Long term (current) use of oral hypoglycemic drugs; Z79.899 Other long term (current) drug therapy; Z79.82 Long term (current) use of aspirin; Z88.8 Allergy status to other drugs, medicaments and biological substances; Z91.09 Other allergy status, other than to drugs and biological substances; Z87.891 Personal history of nicotine dependence; Z80.1 Family history of malignant neoplasm of trachea, bronchus and lung; Z80.7 Family history of other malignant neoplasms of lymphoid, hematopoietic and related tissues
CPT/HCPCS: 64493; 64494; J2250; J1030; J3010; J2795; 99152

== ENCOUNTER → 2022-02-25 | Outpatient (CLI) | payer MEDICARE ==
--- NOTE | 2022-02-25 12:46 | US ---
EXAMINATION TYPE: US thyroid st tissue head/neck DATE OF EXAM: 02/25/2022 COMPARISON: Hx FNA at this facility. Prior full US at outside facility- report is scanned in PACS und er MISC 2. CLINICAL HISTORY: E04.2 NONTOXIC MULTINODULAR GOITER. Hx FNA. Nontoxic multinodular goiter. GLAND SIZE: Right Lobe: 5.9 x 2.2 x 2.3 cm Overall Parenchyma: heterogenous Left Lobe: 5.2 x 1.7 x 1.7 cm Overall Parenchyma: heterogeneous Isthmus Thickness: 0.35 cm NODULES RIGHT: # of nodules measured on right: 3 1. 1.1 X 1.0 x 0.9 cm, mid lateral, mixed cystic and solid nodule, which is wider than tall, with s mooth margins, with echogenic foci. Prior size: Unable to correlate 2. 1.0 X 0.9 x 0.6 cm, upper-mid medial, mixed cystic and solid, hypoechoic nodule, which is wider than tall, with smooth margins, without echogenic foci. Prior size: Unable to correlate 3. 1.1 X 1.0 x 0.8 cm, lower medial, mixed cystic and solid, nodule, which is wider than tall, with smooth margins, with echogenic foci. Prior size: Unable to correlate LEFT: # of nodules measured on left: 3 1. 0.9 X 0.6 x 0.6 cm, upper medial, solid or almost completely solid, hypoechoic nodule, which as wide as it is tall, with ill-defined margins, without echogenic foci. Prior size: Unable to correlate 2. 0.9 X 0.9 x 0.7 cm, mid lateral, mixed cystic and solid, hypoechoic nodule, which is wider than tall, with smooth margins, without echogenic foci. Prior size: Unable to correlate 3. 0.7 X 0.7 x 0.5 cm, lower lateral, mixed cystic and solid, hypoechoic nodule, which is wider tay n tall, with smooth margins, without echogenic foci. Prior size: Unable to correlate ISTHMUS: # of nodules measured in the isthmus: 0 Bilateral neck scanned, no evidence of lymphadenopathy. IMPRESSION: 1. Thyroid glandular enlargement and heterogeneity. Correlate with thyroid function testing. 2. Multiple nonspecific nodules as discussed above.
[2022-02-25 19:13] LABS: T4, Free (Free Thyroxine) 1.46 ng/dL (0.800-1.800)
== END | disposition home or self-care (01) ==
LOC: RADUSWWP 08:40
PROVIDERS: ATTEND Internal Medicine Endocrinology, Diabetes & Metabolism
DX: E04.2 Nontoxic multinodular goiter (principal); E55.9 Vitamin D deficiency, unspecified; R73.02 Impaired glucose tolerance (oral)
CPT/HCPCS: 76536; 84439; 84443; 84481

== ENCOUNTER → 2022-02-27 | Outpatient (CLI) | payer MEDICARE ==
[2022-02-27 14:57] VITALS: BP 119/76; PULSE 63; RESP 18; TEMP 98.4
--- NOTE | 2022-02-27 15:18 | P.PAINPG ---
PQRS Measure Charge Sheet Comment: A 72 yr old female with a history of severe and chronic low back pain x 38 yrs secondary to lumbar degenerative disc diseases and lumbar spondylosis with facet arthropathy presents today for an evaluation s/p BL facet block of the medial branches L4-L5, L5-S1 #1. Pt states she experienced 90% pain relief x 2 days s/p procedure. Pain level is currently at 3/10 in intensity, constant, localized in her tailbone without radiation of pain. Pain is provoked by walking/sitting for periods of 30 min or more. Pain is alleviated with massages as needed, chiropractic treatments semi monthly until Mar 2021, ice, medications (Celebrex), laying supine, repositioning and rest. Interventional pain procedures completed include BL MBB L3-L5 x1 Patient is currently on Celebrex Patient denies any side effects of the medication(s), denies excessive drowsiness or sleepiness, denies suicidal ideation and reports that the current pain medication is helping to control the pain and improve activities of daily living. Patient denies any motor or sensory deficits. Patient denies any fever or night sweats, denies any change in the bowel movements or urination. Physical Examination: -Constitutional: Cooperative. Not in acute distress . - Neurologic: Cranial nerve II to XII intact. No focal neurological deficits. - Psychatric: Alert & oriented x 3. Matching mood & appropriate affect. Judgment and insight intact. - Musculoskeletal: Cervical spine: Muscle bulk/ tone/ strength in the bilateral upper extremities normal Vertebral body tenderness to palpation over Spurling test positive Distraction test positive Facet loading test positive Thoracic spine Muscle bulk / tone/ strength in the bilateral paraspinal muscles normal Vertebral body tender to palpation over Facet loading test positive Lumbar spine: Motor bulk/ tone/ strength lower extremities , thigh and legs : 5/5 Deep tendon reflexes : Normal Knee Jerk. Normal Ankle Jerk . Vertebral body tenderness to palpation over Lumbar Facet Loading Test positive over BL L4-L5, L5-S1, R<L Straight Leg Raise: positive at 30 degrees right side/ left side Gaenslen's Test positive Sacral spine : Severe tenderness over the Sacroiliac joint: right side / left side Range of motion: Flexion of the lumbar spine <60 degrees Range of motion: Extension of the lumbar spine <20 degrees Gaenslen's Test positive Raji's Test positive Sary test: positive right side / left side Thigh Thrust Test Sacral Thrust Test Assessment and plan: Chronic low back pain secondary to lumbar degenerative disc disease , lumbar spondylosis with facet arthropathy without myelopathy Recommendation of BL facet block of the medial branches L4-L5, L5-S1 #2. May need a series of injections, up until RFA , for optimal pain relief. Risks, benefits of procedure discussed and pt verbalized understanding. Denies anticoagulant use or medical history of diabetes. All patient questions answered MAPS reviewed and it was appropriate. I have spent less than 30 minutes on patient care today. Dr Campuzano was available by phone for the evaluation of this patient. The time was used to review the medical records including relevant urine studies and Prescription history (MAPs), review of the available imaging, evaluation and examination of the patient, coordination of care with the medical staff and if applicable referring physicians, as well as creation of the medical record PQRS Narrative: Smoking Status Former smoker Hx Alcohol Use (MH) Yes Home Medications: Ambulatory Orders Ubidecarenone [Co Q-10] 100 mg PO DAILY 12/18/15 metFORMIN HCL [Glucophage] 500 mg PO BID 12/18/15 Magnesium (Unknown Dose) 1 tab PO Q2D 08/27/20 Omeprazole Magnesium [PriLOSEC OTC] 20 mg PO QAM 08/27/20 Vitamin A, D, K 1 tab PO DAILY 08/27/20 Losartan Potassium [Cozaar] 75 mg PO HS 08/28/20 Metoprolol Succinate (ER) [Toprol Xl] 50 mg PO QAM 08/28/20 Rosuvastatin Calcium [Crestor] 5 mg PO HS 08/28/20 Cyanocobalamin (Vitamin B-12) [Vitamin B12] 1,000 mcg PO DAILY 06/20/21 Ibuprofen [Motrin] 400 mg PO Q6HR PRN 06/20/21 Celecoxib [CeleBREX] 200 mg PO [id number] 01/27/22 Controlled Substance Measures - Controlled Substance Measures Is patient prescribed a controlled substance at discharge?: No
== END ==
LOC: PNWHC3 12:50
PROVIDERS: ATTEND Specialist
DX: M47.816 Spondylosis without myelopathy or radiculopathy, lumbar region (principal); M51.36 Other intervertebral disc degeneration, lumbar region; G89.29 Other chronic pain; Z87.891 Personal history of nicotine dependence; Z91.048 Other nonmedicinal substance allergy status; Z88.8 Allergy status to other drugs, medicaments and biological substances
CPT/HCPCS: 99211

== ENCOUNTER 2022-04-04 06:15 | Day surgery (SDC) | payer MEDICARE ==
[2022-04-04 06:57] VITALS: TEMP 98.1
[2022-04-04 06:57] LABS: Glucose,Whole Blood 122 mg/dL (70-110)
[2022-04-04] MEDS ORDERED: fentaNYL (PF) 50 MCG/ML 2 ML AMP ONE (07:00)
[2022-04-04] MEDS ORDERED: methylPREDNISolone ACETATE 40 MG/ML 1 ML VIAL ONE (07:00)
[2022-04-04] MEDS ORDERED: MIDAZOLAM 2 MG/2 ML VIAL ONE (07:00)
[2022-04-04] MEDS ORDERED: ROPIVACAINE 5 MG/ML 20 ML AMPULE ONE (07:00)
--- NOTE | 2022-04-04 07:18 | P.PCN ---
Date of Procedure: 04/04/22 Procedure(s) Performed: PREOPERATIVE DIAGNOSIS : 1- Lumbar spondylosis with Facet Arthropathy without myelopathy . 2- Lumber degenerative disc disease POSTOPERATIVE DIAGNOSIS: 1- Lumbar spondylosis with Facet Arthropathy without myelopathy . 2- Lumber degenerative disc disease PROCEDURE: Diagnostic bilateral L3 , L4 , and L5 medial branch block under fluoroscopy guidance (fluoroscopy images available in the radiology Department ) ( To target the facet joint between bilateral L4-5 , and L5-S1 )# 2nd ANESTHESIA:, monitered anesthesia care as per anesthesia department EBL: Minimal COMPLICATION: None PROCEDURE INDICATION: Chronic low back pain secondary to Facet arthropathy unresponsive to conservative treatment. PROCEDURE DESCRIPTION: the patient was seen and identified in the preop holding area , risks and benefits and possible complications of the procedure and alternative were discussed with the patient, and the patient agreed to proceed with the procedure and signed the consent and vital signs monitored during the procedure and fluoroscopy was used to maximize the benefit and accuracy of the needle placement, and sedation was given to decrease patient anxiety, patient was taken to the procedure room and placed in prone position vital signs monitored in the back prepped with chlorhexidine X3 then under strict sterile technique using a right oblique fluoroscopy ,the junction of the transverse process and the superior articulating process of the right L3 , L4 , and L5 vertebra which corresponding to the fluoroscopy image of the eye of the Gus dog on the block side for the medial branches and subsequently , after local infiltration of skin and subcu tissuies with Ropivacaine 0.5 % , one mL at each level ,then 22-gauge Quincke-type needles , 3 needle was used , each one of them placed at the junction of the base of the transverse process and the superior articular process at the appropriate level, and the needle was advanced until the periosteum contacted, needle placement confirmed with AP oblique and lateral view and after appropriate needle placement confirmed, and after negative aspiration for heme and CSF and there was no paresthesia 1-1/2 mL of Ropivacaine 0.5% mixed with 20 mg Depo-Medrol , then half mL injected at each level after negative aspiration the needle subsequently removed and the same procedure repeated for the left side at left side at L3 , L4 and L5 levels. At the end of the procedure and the needles removed and a bandage applied after the skin was cleaned the cleaning solution patient taken to recovery room in stable condition and monitors in the recovery room for 20-30 minutes and discharged home in stable condition after discharge criteria met and patient will follow up with the pain clinic in 2-4 weeks
[2022-04-04] MEDS ORDERED: IV FLUID CONTINUATION 1,000 ML IV ONE (07:20)
[2022-04-04 07:24] VITALS: PULSE 60
[2022-04-04 07:37] VITALS: BP 109/57; RESP 20
--- NOTE | 2022-04-04 08:31 | FL ---
Intraoperative/procedural fluoroscopic services were provided for bilateral facet lumbar block. Total fluoroscopy time is 8 seconds with a total of 4 submitted images to PACS. Please see the operative n ote for further details.
== END 2022-04-04 07:50 ==
LOC: ORPAIN 06:15
PROVIDERS: ATTEND Specialist
DX: M47.816 Spondylosis without myelopathy or radiculopathy, lumbar region (principal); M51.36 Other intervertebral disc degeneration, lumbar region; G89.29 Other chronic pain; Z91.048 Other nonmedicinal substance allergy status; I10 Essential (primary) hypertension; E78.5 Hyperlipidemia, unspecified; Z87.891 Personal history of nicotine dependence; E11.9 Type 2 diabetes mellitus without complications; Z87.09 Personal history of other diseases of the respiratory system; K21.9 Gastro-esophageal reflux disease without esophagitis; Z88.8 Allergy status to other drugs, medicaments and biological substances; Z79.899 Other long term (current) drug therapy; Z79.890 Hormone replacement therapy; Z79.891 Long term (current) use of opiate analgesic; Z79.84 Long term (current) use of oral hypoglycemic drugs
CPT/HCPCS: 64493; 64494 ×2; J2250; J1030; J3010; J2795

== ENCOUNTER → 2022-04-17 | Outpatient (CLI) | payer MEDICARE ==
[2022-04-17 14:45] VITALS: BP 104/68; PULSE 97; RESP 18; TEMP 98.5
--- NOTE | 2022-04-17 14:59 | P.PAINPG ---
PQRS Measure Charge Sheet Comment: A 72 yr old female with a history of severe and chronic low back pain secondary to lumbar degenerative disc diseases and lumbar spondylosis with facet arthropathy without myelopathy presents today for evaluation s/p BL MBB L4-L5, L5-S1 #2. Pt states she experienced 90% pain relief x 4 hours s/p procedure. Pain level is currently at 3 /10 in intensity but escalates as high as 5/10, constant, localized in lower lumbar spine, achy in character w shooting towards the BL buttocks and BLEs. Pain is provoked by standing/ walking for periods of 15 min or more. Pain is alleviated with medications, topicals, injections, PT x 6 wks in September 2021, chiropractic treatments which ended on Apr 2021, laying supine w LEs elevated, repositioning and rest. Interventional pain procedures completed include BL MBB L3-L5 x2 Patient is currently on Celebrex Patient denies any side effects of the medication(s), denies excessive drowsiness or sleepiness, denies suicidal ideation and reports that the current pain medication is helping to control the pain and improve activities of daily living. Patient denies any motor or sensory deficits. Patient denies any fever or night sweats, denies any change in the bowel movements or urination. Physical Examination: -Constitutional: Cooperative. Not in acute distress . - Neurologic: Cranial nerve II to XII intact. No focal neurological deficits. - Psychatric: Alert & oriented x 3. Matching mood & appropriate affect. Judgment and insight intact. - Musculoskeletal: Cervical spine: Muscle bulk/ tone/ strength in the bilateral upper extremities normal Vertebral body tenderness to palpation over Spurling test positive Distraction test positive Facet loading test positive Thoracic spine Muscle bulk / tone/ strength in the bilateral paraspinal muscles normal Vertebral body tender to palpation over Facet loading test positive Lumbar spine: Motor bulk/ tone/ strength lower extremities , thigh and legs : 5/5 Deep tendon reflexes : Normal Knee Jerk. Normal Ankle Jerk . Vertebral body tenderness to palpation over Lumbar Facet Loading Test positive w jump reflex over BL L4-L5, L5-S1 Straight Leg Raise: positive at 30 degrees right side/ left side Gaenslen's Test positive Sacral spine : Severe tenderness over the Sacroiliac joint: right side / left side Range of motion: Flexion of the lumbar spine <60 degrees Range of motion: Extension of the lumbar spine <20 degrees Gaenslen's Test positive Raji's Test positive Sary test: positive right side / left side Thigh Thrust Test Sacral Thrust Test Assessment and plan: Chronic low back pain secondary to lumbar degenerative disc disease , lumbar spondylosis with facet arthropathy without myelopathy Recommendation of BL RFA L4-L5, L5-S1. Pt exhibited substantial pain relief s/p procedures. Risks, benefits of procedure discussed and pt verbalized understanding. Admits anticoagulant use or medical history of diabetes. Protocol for discontinuation/ continuation of medications ling procedure discussed. All patient questions answered I have spent less than 30 minutes on patient care today. Dr Campuzano was available by phone for the evaluation of this patient. The time was used to review the medical records including relevant urine studies and Prescription history (MAPs), review of the available imaging, evaluation and examination of the patient, coordination of care with the medical staff and if applicable referring physicians, as well as creation of the medical record PQRS Narrative: Smoking Status Former smoker Hx Alcohol Use (MH) Yes Home Medications: Ambulatory Orders Ubidecarenone [Co Q-10] 100 mg PO DAILY 12/18/15 metFORMIN HCL [Glucophage] 500 mg PO BID 12/18/15 Magnesium (Unknown Dose) 1 tab PO Q2D 08/27/20 Omeprazole Magnesium [PriLOSEC OTC] 20 mg PO QAM 08/27/20 Vitamin A, D, K 1 tab PO DAILY 08/27/20 Losartan Potassium [Cozaar] 75 mg PO HS 08/28/20 Metoprolol Succinate (ER) [Toprol Xl] 50 mg PO QAM 08/28/20 Rosuvastatin Calcium [Crestor] 5 mg PO HS 08/28/20 Cyanocobalamin (Vitamin B-12) [Vitamin B12] 1,000 mcg PO DAILY 06/20/21 Celecoxib [CeleBREX] 200 mg PO PC-BRKFST 01/27/22 Controlled Substance Measures - Controlled Substance Measures Is patient prescribed a controlled substance at discharge?: No
== END ==
LOC: PNWHC3 14:11
PROVIDERS: ATTEND Specialist
DX: M51.36 Other intervertebral disc degeneration, lumbar region (principal); M47.816 Spondylosis without myelopathy or radiculopathy, lumbar region; G89.29 Other chronic pain; F10.90 Alcohol use, unspecified, uncomplicated; Z87.891 Personal history of nicotine dependence; Z91.048 Other nonmedicinal substance allergy status; Z88.8 Allergy status to other drugs, medicaments and biological substances
CPT/HCPCS: 99211

== ENCOUNTER 2022-07-11 09:22 | Day surgery (SDC) | payer MEDICARE ==
[2022-07-09 16:14] VITALS: BMI 32.1
[~2022-07-11 09:22] MED LIST changes: -LIDOCAINE 1% (10MG/ML) FOR IV START INTRADERMA PRN
[2022-07-11 09:44] VITALS: RESP 16; TEMP 97.6
[2022-07-11] MEDS ORDERED: LIDOCAINE 1% (10MG/ML) FOR IV START INTRADERMA ONE (09:50)
[2022-07-11 10:06] LABS: Glucose,Whole Blood 113 mg/dL (70-110)
[2022-07-11] MEDS ORDERED: fentaNYL (PF) 50 MCG/ML 2 ML AMP ONE (10:46)
[2022-07-11] MEDS ORDERED: MIDAZOLAM 2 MG/2 ML VIAL ONE (10:46)
[2022-07-11] MEDS ORDERED: ROPIVACAINE 5 MG/ML 20 ML AMPULE ONE (10:46)
[2022-07-11] MEDS ORDERED: TRIAMCINOLONE ACETONIDE 40 MG/ML 1 ML VIAL ONE (10:46)
--- NOTE | 2022-07-11 11:14 | P.PCN ---
Date of Procedure: 07/11/22 Surgeon: Asim Arias Pathology: none sent Condition: stable Disposition: PACU Description of Procedure: PREOPERATIVE DIAGNOSIS: Lumbar spondylosis without myelopathy, morbid obesity POSTOPERATIVE DIAGNOSIS: Lumbar spondylosis without myelopathy,morbid obesity PROCEDURES : Bilateral Radiofrequency thermocoagulation L4-L5, and L5-S1 medial branch, with fluoroscopic guidance ANESTHESIA: IV moderate conscious sedation with versed and fentanyl by the anesthesia Department and local infiltration with lidocaine 1% 5 ml Physician:Asim Arias MD EBL: Minimal PROCEDURE INDICATION: The patient with low back pain secondary to lumbar facet arthropathy who had significant relief of pain with previous diagnostic lumbar medial branch block with Ropivacaine0.5%. PROCEDURE DESCRIPTION / TECHNIQUE: The patient was seen and identified in the preoperative area. Risks, benefits, complications, including but not limited to risk of infection ,bleeding , allergic reactions to the medications and no complete pain relief , and alternatives were discussed with the patient, the patient agreed to proceed with the procedure and signed the consent. IV was started. Vital signs remained stable throughout the procedure. Patient was taken to the OR and time out was completed. The patient was placed in the prone position on the procedure table. The lumber area was prepped and draped in the usual sterile fashion. . Vital signs were closely monitored during the procedure .IV sedation was used during the procedure to decrease patients anxiety. The target points were identified as follows: For the L5-S1 level which corresponds to the dorsal ramus of L5 the target point was at the superior medial aspect of the sacral ala on the Rt side of the spine on the AP view of fluoroscopy and for the L3, and L4 medial branches the target points were at the connection between the transverse process and the superior articular process of L4, and L5 vertebra respectively on the Rt oblique view of fluoroscopy. skin was marked, and localized with 1% lidocaineat these points. Subsequently, an 18 -lb radiofrequency needles with a 10-mm curved active tips were advanced guided by fluoroscopy to each of the target points mentioned above in a superior medial direction to get the active tips as parallel as possible to the medial branches tracks. AP, oblique, and lateral views of fluoroscopy were used to verify needle tips position. Each level then underwent motor testing at 2.5 Hz and 0 to 3 volt with local stimulation, but no radicular symptoms down the legs. I then injected 1 mL of lidocaine 1% in each needle before starting radiofrequency thermocoagulation at 80 degrees celsius for 90 seconds. After that I injected 1 ml of PF Ropivacaine 0.5%(3 mls) with 40 mg of Kenalog, 1 mL of this mixture was given in each needle before taking the needles out intact. Then the left side with the same levels was done in the same manner. At the end of the procedure, the skin was cleansed and bandages were applied. A copy of needle placement fluoroscopy was saved on the C-arm machine. COMPLICATIONS: No acute complications. DISPOSITION / PLANS: The patient was placed in a supine position and transferred to the recovery area in a stable condition for observation and was discharged from the recovery room after meeting discharge criteria. Home discharge instructions given to the patient by the staff. The patient was reexam ined prior to discharge. The patient will schedule a follow up in the clinic in 2-4 weeks. Sedation time: Sedation was provided by the anesthesia Department
[2022-07-11] MEDS ORDERED: IV FLUID CONTINUATION 1,000 ML IV ONE (11:20)
--- NOTE | 2022-07-11 11:27 | FL ---
Intraoperative/procedural fluoroscopic services were provided for bilateral lumbar facet block. Total fluoroscopy time is 18 seconds with a total of 6 submitted images to PACS. Please see the operative note for further details.
[2022-07-11 11:35] VITALS: BP 117/56; PULSE 58
== END 2022-07-11 11:49 | disposition home or self-care (01) ==
LOC: ORPAIN 09:22
PROVIDERS: ATTEND Anesthesiology
DX: M47.816 Spondylosis without myelopathy or radiculopathy, lumbar region (principal); I11.9 Hypertensive heart disease without heart failure; G47.33 Obstructive sleep apnea (adult) (pediatric); J45.909 Unspecified asthma, uncomplicated; E07.9 Disorder of thyroid, unspecified; E11.9 Type 2 diabetes mellitus without complications; E66.01 Morbid (severe) obesity due to excess calories; Z87.891 Personal history of nicotine dependence; Z99.89 Dependence on other enabling machines and devices; Z79.84 Long term (current) use of oral hypoglycemic drugs; Z79.82 Long term (current) use of aspirin; Z79.899 Other long term (current) drug therapy; Z79.890 Hormone replacement therapy; Z98.51 Tubal ligation status; Z98.890 Other specified postprocedural states; Z68.38 Body mass index [BMI] 38.0-38.9, adult; Z90.710 Acquired absence of both cervix and uterus; Z91.048 Other nonmedicinal substance allergy status
CPT/HCPCS: 64635; 64636; J2250; J3301; J2001; J3010; J2795

== ENCOUNTER → 2022-07-31 | Outpatient (CLI) | payer MEDICARE ==
[2022-07-31 14:00] VITALS: BP 135/85; PULSE 62; RESP 18; TEMP 98.6
--- NOTE | 2022-07-31 14:57 | P.PAINPG ---
PQRS Measure Charge Sheet Comment: A 72 yr old female with a history of severe and chronic low back pain secondary to lumbar DDD and spondylosis with facet arthropathy without myelopathy presents today for evaluation s/p BL RFA L3-L5 Pt states she experienced 76 % pain relief s/p procedure. Pain level is provoked at 3 /10 in intensity, constant, localized in the L lower lumbar spine, sore in character w shooting towards the L posterior LE. Pain is provoked by laying supine at bedtime, PT in 2020. Pain is alleviated with heat, meds (Celebrex), topicals, home exercise regimen as tolerated, repositioning and rest. Interventional pain procedures completed include BL RFA L3-5 Patient is currently on Celebrex from Dr Govea Patient denies any side effects of the medication(s), denies excessive drowsiness or sleepiness, denies suicidal ideation and reports that the current pain medication is helping to control the pain and improve activities of daily living. Patient denies any motor or sensory deficits. Patient denies any fever or night sweats, denies any change in the bowel movements or urination. Physical Examination: -Constitutional: Cooperative. Not in acute distress . - Neurologic: Cranial nerve II to XII intact. No focal neurological deficits. - Psychatric: Alert & oriented x 3. Matching mood & appropriate affect. Osiris gment and insight intact. - Musculoskeletal: Cervical spine: Muscle bulk/ tone/ strength in the bilateral upper extremities normal Vertebral body tenderness to palpation over Spurling test positive Distraction test positive Facet loading test positive Thoracic spine Muscle bulk / tone/ strength in the bilateral paraspinal muscles normal Vertebral body tender to palpation over Facet loading test positive Lumbar spine: Motor bulk/ tone/ strength lower extremities , thigh and legs : 5/5 Deep tendon reflexes : Normal Knee Jerk. Normal Ankle Jerk . Vertebral body tenderness to palpation over Lumbar Facet Loading Test positive Straight Leg Raise: positive at 30 degrees right side/ left side Gaenslen's Test positive Sacral spine : Severe tenderness over the Sacroiliac joint: right side / left side Range of motion: Flexion of the lumbar spine <60 degrees Range of motion: Extension of the lumbar spine <20 degrees Gaenslen's Test positive Sary test: positive right side / left side Thigh Thrust Test Sacral Thrust Test Assessment and plan: Chronic low back pain secondary to lumbar degenerative disc disease, spondylosis with facet arthropathy without myelopathy Pt exhibited substantial pain relief w RFA. Will manage residual pain at home and may return to clinic as needed. All patient questions answered I have spent less than 30 minutes on patient care today. Dr Campuzano was available by phone for the evaluation of this patient. The time was used to review the medical records including relevant urine studies and Prescription history (MAPs), review of the available imaging, evaluation and examination of the patient, coordination of care with the medical staff and if applicable referring physicians, as well as creation of the medical record PQRS Narrative: Smoking Status Former smoker Hx Alcohol Use (MH) Yes Home Medications: Ambulatory Orders Ubidecarenone [Co Q-10] 100 mg PO DAILY 12/18/15 metFORMIN HCL [Glucophage] 500 mg PO BID 12/18/15 Magnesium (Unknown Dose) 1 tab PO DAILY 08/27/20 Omeprazole Magnesium [PriLOSEC OTC] 20 mg PO QAM 08/27/20 Vitamin A, D, K 1 tab PO DAILY 08/27/20 Losartan Potassium [Cozaar] 75 mg PO HS 08/28/20 Metoprolol Succinate (ER) [Toprol Xl] 50 mg PO QAM 08/28/20 Rosuvastatin Calcium [Crestor] 5 mg PO Q48H 08/28/20 Celecoxib [CeleBREX] 200 mg PO PC-BRKFST 01/27/22 Aspirin [Adult Low Dose Aspirin EC] 81 mg PO HS 07/11/22 Controlled Substance Measures - Controlled Substance Measures Is patient prescribed a controlled substance at discharge?: No
== END ==
LOC: PNWHC3 12:32
PROVIDERS: ATTEND Specialist
DX: M47.816 Spondylosis without myelopathy or radiculopathy, lumbar region (principal); M51.36 Other intervertebral disc degeneration, lumbar region; G89.29 Other chronic pain; Z87.891 Personal history of nicotine dependence; Z91.048 Other nonmedicinal substance allergy status; Z88.8 Allergy status to other drugs, medicaments and biological substances
CPT/HCPCS: 99211

== ENCOUNTER 2023-06-25 21:08 | Emergency (ER) | payer MEDICARE ==
[2023-06-25 21:23] VITALS: TEMP 97.5
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
[2023-06-25 22:02] LABS: Basophils # (A) 0.1 k/uL (0-0.2); Basophils % (A) 1 %; Eosinophils # (A) 0.2 k/uL (0-0.7); Eosinophils % (A) 3 %; HCT 38.1 % (34.0-46.0); HGB 13.2 gm/dL (11.4-16.0); Lymphocytes # (A) 2.4 k/uL (1.0-4.8); Lymphocytes % (A) 29 %; MCH 30.4 pg (25.0-35.0); MCHC 34.6 g/dL (31.0-37.0); MCV 87.8 fL (80.0-100.0); Mean Platelet Volume 8.4; Monocytes # (A) 0.6 k/uL (0-1.0); Monocytes % (A) 7 %; Neutrophils # (A) 4.8 k/uL (1.3-7.7); Neutrophils % (A) 58 %; Platelet Count 263 k/uL (150-450); RBC 4.34 m/uL (3.80-5.40); RDW 12.9 % (11.5-15.5); WBC 8.3 k/uL (3.8-10.6)
[2023-06-25 22:11] LABS: INR 0.9 (<1.2); Partial Thromboplastin Time 24.6 sec (22.0-30.0); Prothrombin Time 9.8 sec (10.0-12.5)
[2023-06-25 22:14] LABS: ALT 19 U/L (4-34); AST 30 U/L (14-36); African American GFR (CKD) >90 (>60 ml/min/1.73 sqM); Albumin 4.6 g/dL (3.5-5.0); Alkaline Phosphatase 61 U/L (38-126); Anion Gap 14 mmol/L; Blood Urea Nitrogen 20 mg/dL (7-17); Calcium 9.7 mg/dL (8.4-10.2); Carbon Dioxide 22 mmol/L (22-30); Chloride 100 mmol/L (98-107); Glucose 103 mg/dL (74-99); Lipase 225 U/L (23-300); Magnesium 1.9 mg/dL (1.6-2.3); Non-African American GFR(CKD) 90 (>60 ml/min/1.73 sqM); Potassium 4.2 mmol/L (3.5-5.1); Sodium 136 mmol/L (137-145); Total Bilirubin 0.3 mg/dL (0.2-1.3); Total Protein 7.5 g/dL (6.3-8.2)
[2023-06-26 02:46] VITALS: BP 138/84; PULSE 79; RESP 18
== END 2023-06-26 01:06 | disposition other institution (70) ==
LOC: EC 21:08
DX: K92.1 Melena (principal); K64.8 Other hemorrhoids; E11.9 Type 2 diabetes mellitus without complications; I10 Essential (primary) hypertension; K21.9 Gastro-esophageal reflux disease without esophagitis; Z79.84 Long term (current) use of oral hypoglycemic drugs; Z79.899 Other long term (current) drug therapy; Z79.82 Long term (current) use of aspirin; Z87.891 Personal history of nicotine dependence; Z91.09 Other allergy status, other than to drugs and biological substances; Z88.8 Allergy status to other drugs, medicaments and biological substances
CPT/HCPCS: 36415; 80053; 82272; 83605; 83690; 83735; 84484; 85025; 85610; 85730; 86850; 86870; 86880; 86900; 86901; 99285

== ENCOUNTER → 2023-09-10 | Outpatient (CLI) | payer MEDICARE ==
--- NOTE | 2023-09-10 14:52 | MM ---
Reason for Exam: Screening (asymptomatic). Last screening mammogram was performed 12 month(s) ago. Patient History: Menarche at age 15. First Full-Term at age 28. Hysterectomy at age 47. Postmenopausal. Patient has history of breast feeding. Estrogen, from age 47 until age 59. Maternal aunt had breast cancer, age 41. Risk Values: Karen 5 year model risk: 1.9%. NCI Lifetime model risk: 5.4%. Prior Study Comparison: 08/15/2020 Bilateral Screening Mammogram, [facility]. 08/27/2021 Bilateral Screening Mammogram, [facility]. 08/29/2022 Bilateral MG 3D screening mammo w/cad, [facility]. Tissue Density: There are scattered fibroglandular densities. Findings: Analyzed By CAD. There is no suspicious group of microcalcifications or new suspicious mass. Overall Assessment: Negative, BI-RAD 1 Management: Screening Mammogram of both breasts in [address] [facility] will attempt to contact patient to return for supplemental views and ultrasound if indicated. Patient should continue monthly self-breast exams. A clinical breast exam by your physician is recommended on an annual basis. This exam should not preclude additional follow-up of suspicious palpable abnormalities. Note on Karen scores and lifetime risk: 1. A Karen score greater than 3% is considered moderate risk. If this is the case, consider specialist referral to assess eligibility for a risk reducing agent. 2. If overall lifetime risk for the development of breast cancer is 20% or higher, the patient may qualify for future screening with alternating mammogram and breast MRI. Electronically signed and approved by: Jeff Donis DO
== END | disposition home or self-care (01) ==
LOC: RADMAMWWP 10:08
PROVIDERS: ATTEND Family Medicine
DX: Z12.31 Encounter for screening mammogram for malignant neoplasm of breast (principal); Z78.0 Asymptomatic menopausal state; Z80.3 Family history of malignant neoplasm of breast
CPT/HCPCS: 77063; 77067

== ENCOUNTER → 2024-09-19 | Outpatient (CLI) | payer MEDICARE ==
--- NOTE | 2024-09-19 19:19 | MR ---
INDICATION: Patient age:Female; 74 years old; Reason for study: M54.2 NECK PAIN M50.30 CERVICAL DISC DEGENERATION; PHH. COMPARISON: None. TECHNIQUE: Multi planar, multi sequence imaging was performed of the cervical spine. No Gadolinium wa s given. FINDINGS: Alignment: The cervical vertebral bodies have preserved heights. Grade 1 anterolisthesis of C3 on C4 and C5 on C6. Bones: Bone signal is within normal limits. Multilevel anterior aspect of the cyst. No abnormal STIR signal. Cord: The spinal cord is unremarkable with regards to their signal intensity and morphology. Discs: Multilevel disc desiccation is present. C2-C3: No significant disc pathology. The spinal canal is patent. Right facet arthropathy with mild right neural foraminal narrowing. The left neural foramen is patent. C3-C4: Central disc protrusion with cranial migration of approximately 6 mm on the posterior cortex o f the C3 vertebral body. Resultant mild effacement of the anterior thecal sac with close approximatio n to the ventral spinal cord. No significant central canal stenosis. Bilateral facet arthropathy. No significant neural foraminal stenosis. C4-C5: No significant disc pathology. The spinal canal is patent. Uncovertebral joint hypertrophy wi th right facet arthropathy resulting in mild right neural foraminal stenosis. The left neural foramen is patent. C5-C6: Broad-based disc bulge with mild effacement of the anterior thecal sac. No significant central canal stenosis. Bilateral facet arthropathy. Mild right neural foraminal narrowing. The left neural foramen is patent. C6-C7: Eccentric left disc bulge extending in the subarticular and foraminal zone. This results in mi ld effacement of the left aspect of the anterior thecal sac. Mild central canal stenosis. Bilateral facet arthropathy. Uncovertebral joint hypertrophy. Mild to moderate right neural foraminal stenosis. Moderate to severe left neural foraminal stenosis. C7-T1: No significant disc pathology. The spinal canal is patent. No neural foraminal stenosis. Other: None. IMPRESSION: Multilevel disc degeneration with associated osteoarthritic changes as described above. C3-C4 central disc protrusion with cranial migration. C6-C7 eccentric left disc bulge resulting in mild central canal stenosis with moderate to severe left neuroforaminal stenosis. [facility], , 09/19/2024 7:16 PM
== END | disposition home or self-care (01) ==
LOC: RADMRIMAIN 16:33
PROVIDERS: ATTEND Family Medicine
DX: M47.812 Spondylosis without myelopathy or radiculopathy, cervical region (principal); M50.11 Cervical disc disorder with radiculopathy, high cervical region; M48.02 Spinal stenosis, cervical region; M99.71 Connective tissue and disc stenosis of intervertebral foramina of cervical region
CPT/HCPCS: 72141

== ENCOUNTER → 2024-09-28 | Outpatient (CLI) | payer MEDICARE ==
--- NOTE | 2024-09-28 09:16 | MM ---
Reason for Exam: Screening (asymptomatic). Last mammogram was performed 1 year(s) and 1 month(s) ago. Patient History: Menarche at age 15. First Full-Term at age 28. Hysterectomy at age 47. Postmenopausal. Patient has history of breast feeding. Currently using Estrogen, starting at age 47. Maternal aunt had breast cancer, age 41. Risk Values: Karen 5 year model risk: 2.0%. NCI Lifetime model risk: 5.1%. Prior Study Comparison: 08/27/2021 Bilateral Screening Mammogram, [facility]. 08/29/2022 Bilateral MG 3D screening mammo w/cad, [facility]. 09/10/2023 Bilateral MG 3D screening mammo w/cad, [facility]. Tissue Density: The breasts are heterogeneously dense, which may obscure small masses. Findings: Analyzed By CAD. There are a few tiny benign-appearing round calcifications scattered throughout the right breast. There is no suspicious group of microcalcifications or new suspicious mass in either breast. Overall Assessment: Benign, BI-RAD 2 Management: Screening Mammogram of both breasts in 1 year. . Patient should continue monthly self-breast exams. A clinical breast exam by your physician is recommended on an annual basis. This exam should not preclude additional follow-up of suspicious palpable abnormalities. Note on Karen scores and lifetime risk: 1. A Karen score greater than 3% is considered moderate risk. If this is the case, consider specialist referral to assess eligibility for a risk reducing agent. 2. If overall lifetime risk for the development of breast cancer is 20% or higher, the patient may qualify for future screening with alternating mammogram and breast MRI. [facility], , 09/28/2024 9:13 AM. Electronically signed and approved by: Petros Orosco M.D.
== END | disposition home or self-care (01) ==
LOC: RADMAMWWP 08:45
PROVIDERS: ATTEND Obstetrics & Gynecology
DX: Z12.31 Encounter for screening mammogram for malignant neoplasm of breast (principal); R92.333 Mammographic heterogeneous density, bilateral breasts; R92.1 Mammographic calcification found on diagnostic imaging of breast; Z78.0 Asymptomatic menopausal state; Z80.3 Family history of malignant neoplasm of breast
CPT/HCPCS: 77063; 77067